=== PATIENT | female | born 1935 | race Caucasian/White ===

== ENCOUNTER 2017-05-04 07:56 | Inpatient (IN) | payer OTHER, MEDICARE ==
[~2017-05-04] VITALS: Ht 167.6 cm; Wt 68.0 kg
[~2017-05-04 07:56] MED LIST: ASPIRIN EC81 M1 PO; BYSTOLIC 5MG5 MG PO; CALCIUM + D 6001 TAB PO; CALCIUM 500 +1 EAC5 PO; CENTRUM SILVER1 EAC3 PO; DILTIAZEM 24HR180 MG PO; EXFORGE 5 MG-321 TAB PO; FLECAINIDE ACET50 MG PO; FUROSEMIDE20 MG PO; FUROSEMIDE40 MG PO; HARVONI1 TAB PO; KLOR-CON M2020 ME1 PO; LASIX20 MG PO; LASIX40 MG PO; LEVOTHYROXINE75 MCG PO; MASON NATURAL1200 MG PO; METOPROLOL SUCC50 M1 PO; NATURE'S BLEND500 M1 PO; NORVASC 5MG TAB5 MG PO; OMEGA-3 FISH O1 EAC4 PO; PERCOCET 325 MG1 TA2 PO; SENOKOT S 50 MG1 TAB PO; TOPROL XL 100100 MG PO; TRAVATAN Z5 ML OD; TYLENOL XSTR500 MG PO; VITAMIN A & D1 OIN TOP
--- NOTE | 2017-05-04 08:07 | ED DYSPNEA/ASTHMA COMPLAINT ---
History of Present Illness General Chief Complaint: Dyspnea (COPD, CHF, Other) Stated Complaint: BIBA, SOB Source: patient, family, old records, EMS Exam Limitations: no limitations Vital Signs & Intake/Output Vital Signs & Intake/Output Vital Signs Date Time Temp Pulse Resp B/P B/P Pulse O2 O2 Flow FiO2 Mean Ox Delivery Rate 05/04 1000 98.3 60 17 179/77 93 Room Air 05/04 0828 94 Room Air 05/04 0815 97.9 59 17 190/81 99 Nasal 2.0L Cannula Allergies Coded Allergies: phenytoin (RED RASH FROM HEAD TO TOE 07/07/15) prochlorperazine (TONGUE SWELLS 07/07/15) melatonin (Intermediate, NIGHTMARES, DISORIENTATION, AGITATION 07/07/15) Reconcile Medications Amlodipine Besylate 5 MG TABLET 1 TAB PO DAILY HEART (Reported) Aspirin (Ecotrin*) 81 MG TABLET.DR 1 TAB PO DAILY HEART HEALTH (Reported) Calcium Carbonate/Vitamin D3 (Calcium 500 + D Tablet) 500 MG-400 TABLET 1 TAB PO BID VITAMIN SUPPORT (Reported) Diltiazem HCl (Diltiazem 24HR ER) 180 MG CAP.ER.24H 1 CAP PO DAILY BP ( Reported) Furosemide 40 MG TABLET 1 TAB PO DAILY WATER RETENTION (Reported) Furosemide 20 MG TABLET 1 TAB PO 1200 WATER RETENTION (Reported) Levothyroxine Sodium 75 MCG TABLET 1 TAB PO DAILY AC THYROID (Reported) Metoprolol Succ XL (Toprol XL) 25 MG TAB 1 TAB PO DAILY HEART (Reported) Multivit-Min/FA/Lycopen/Lutein (Centrum Silver Tablet) 0.4 MG-300 MCG-250 MCG TABLET 1 TAB PO DAILY VITAMIN SUPPORT (Reported) [place]-3S/Dha/Epa/Fish Oil ([place]-3 Fish Oil 1,000 MG Sfgl) 300-1,000MG CAPSULE 1 CAP PO BID SUPPLEMENT (Reported) Potassium Chloride (Klor-Con M20) 20 MEQ TAB.ER.PRT 1 TAB PO DAILY SUPPLEMENT (Reported) Travoprost (Travatan Z) 0.004 % DROPS 1 GTT OD QPM GLAUCOMA (Reported) Valsartan 320 MG TABLET 1 TAB PO DAILY HEART (Reported) Triage Nurses Notes Reviewed? yes HPI: Patient presents with increasing shortness of breath and dyspnea on exertion over the past month and a half. 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 This and they cannot figure out what is going on. Patient states she has been attempting to sleep on 2 pillows without is not like her head elevated to go pack to one pillow. Patient states that sometimes she wakes up short of breath and other times she does not. Patient denies any chest pain or palpitations. Patient denies any weight gain. There are no fevers or chills. Patient denies any nausea or vomiting. Past History Travel History Traveled to [place] past 21 day No Medical History Any Pertinent Medical History? 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 No Review of Systems Review of Systems Constitutional: Reports: no symptoms. EENTM: Reports: no symptoms. Respiratory: Reports: see HPI, orthopnea (?), short of breath. Cardiovascular: Reports: no symptoms. GI: Reports: no symptoms. Genitourinary: Reports: no symptoms. Musculoskeletal: Reports: no symptoms. Skin: Reports: no symptoms. Neurological/Psychological: Reports: no symptoms. Hematologic/Endocrine: Reports: no symptoms. Immunologic/Allergic: Reports: no symptoms. All Other Systems: Reviewed and Negative Physical Exam Physical Exam General Appearance: well developed/nourished, alert, awake, anxious, mild distress Head: atraumatic, normal appearance Eyes: Bilateral: PERRL, EOMI. Ears, Nose, Throat: normal pharynx, normal ENT inspection, hearing grossly normal Neck: normal inspection, supple, full range of motion, NO JVD Respiratory: normal breath sounds, chest non-tender, no respiratory distress, lungs clear Cardiovascular: regular rate/rhythm, normal peripheral pulses Gastrointestinal: normal bowel sounds, soft, non-tender, no organomegaly Extremities: normal inspection, normal capillary refill, normal range of motion, no edema Neurologic/Psych: no motor/sensory deficits, awake, alert, oriented x 3, normal mood/affect Skin: intact, normal color, warm/dry Lymphatic: no anterior cervical viviana Core Measures ACS in differential dx? No CVA/TIA Diagnosis No Sepsis Present: No Sepsis Focused Exam Completed? No Progress Differential Diagnosis: asthma, AMI, bronchitis, CHF, COPD, pneumonia, pneumothorax, PLEURAL EFFUSION Plan of Care: Orders Procedure Date/time Status Heart Healthy Diet 05/04 D Active ED Holding Orders 05/04 1146 Active Admit to inpatient 05/04 1146 Active Vital Signs 05/04 1146 Active Code Status 05/04 1146 Active Telemetry/Outpatient Coding Specialist 05/04 0806 Active URINALYSIS 05/04 0806 Complete TROPONIN LEVEL 05/04 0806 Complete D-DIMER 05/04 0806 Complete COMPREHENSIVE METABOLIC PANEL 05/04 0806 Complete CBC WITHOUT DIFFERENTIAL 05/04 0806 Complete B-TYPE NATRIURETIC PEP (BNP) 05/04 0806 Complete EKG 05/04 0758 Active Laboratory Tests 05/04/17 0844: Urine Color YEL, Urine Clarity HAZY H, Urine pH 6.0, Ur Specific Roll 1.015, Urine Protein TRACE H, Urine Ketones NEG, Urine Nitrite NEG, Urine Bilirubin NEG, Urine Urobilinogen 0.2, Ur Leukocyte Esterase SMALL H, Ur Microscopic SEDIMENT EXAMINED, Urine RBC 1-3, Urine WBC 25-50 H, Ur Epithelial Cells MOD H , Urine Bacteria MANY H, Urine Hemoglobin NEG, Urine Glucose NEG 05/04/17 0830: Anion Gap 11, Estimated GFR 60, BUN/Creatinine Ratio 21.1, Glucose 97, Calcium 9.1, Total Bilirubin 0.9, AST 38 H, ALT 43, Alkaline Phosphatase 103, Troponin I < 0.01, [id number]-Tabuzniqxcm Pept 1800 H, Total Protein 7.2, Albumin 3.8, Globulin 3.4, Albumin/Globulin Ratio 1.1, D-Dimer High Sensitivty 1217 H, CBC w Diff NO MAN DIFF REQ, RBC 4.18 L, MCV 88.5, MCH 29.5, RDW 13.5, MPV 9.7, Gran % 74.5, Lymphocytes % 9.9 L, Monocytes % 14.6 H, Eosinophils % 0.8, Basophils % 0.2, Absolute Granulocytes 5.8, Absolute Lymphocytes 0.8 L, Absolute Monocytes 1.1 H, Absolute Eosinophils 0.1, Absolute Basophils 0, PUBS MCHC 33.4 Diagnostic Imaging: Viewed by Me: CT Scan. Discussed w/RAD: CT Scan. Radiology Impression: PATIENT: STACIE HONEYCUTT PRESENT AGE: 81 PATIENT ACCOUNT NO: [id number] : 34 LOCATION: [facility] ([place]) ORDERING PHYSICIAN: Fan Stokes MD SERVICE DATE: 05/04/17 EXAM TYPE: CAT - CTA CHEST-PULMONARY EMBOLISM EXAMINATION: CT ANGIOGRAM OF THE CHEST WITH CONTRAST (CT PULMONARY ANGIOGRAM FOR PE) CLINICAL INFORMATION: Shortness of breath and dyspnea on exertion. COMPARISON: CT angiography of chest, 10/12/2016 and 02/28/2017. TECHNIQUE: Prior to contrast administration, noncontrast localization images were obtained. Subsequently, multidetector volumetric imaging was performed from the thoracic inlet to below the diaphragms following the administration of 95 mL Optiray 350 intravenous contrast. No contrast reaction reported. Sagittal, coronal, and MIP oblique sagittal reformatted images were obtained on the CT workstation, uploaded to PACS, and reviewed. Total exam dose-length product 253 mGy-cm FINDINGS: QUALITY OF STUDY/CONTRAST BOLUS: Satisfactory. PULMONARY ARTERIES: No embolic filling defects within the main, lobar or segmental vessels. THORACIC AORTA: Atherosclerotic calcification of the thoracic aorta without evidence of aneurysm or dissection. LUNGS AND PLEURA: Moderate centrilobular emphysema and interval worsening of bronchial wall thickening in both lungs. Surgical changes from remote right upper lobectomy. Scattered endobronchial secretions in right middle and right lower lobes. Interlobular septal thickening of edema within the right lower lobe with small right pleural effusion. Compared to 02/28/2017, there are new patchy, hazy and nodular opacities in the right lower lobe suspicious for pneumonia. There are a few chronic ill-defined foci of groundglass attenuation in the left upper lobe, likely postinflammatory changes. Compared to 02/28/2017, there are some new micronodular opacities in the left lower lobe. Also, there is a new, irregular 0.9 cm nodule, likely infectious in origin (image 267, series 2). There is a new 0.3 cm noncalcified nodule in the superior segment of the left lower lobe (image 214, series 2). Interlobular septal thickening is present within the left lower lobe. Patchy opacity of atelectasis and/or consolidation in the medial left lower lobe. No left-sided pleural effusion. MEDIASTINUM: Three-vessel coronary artery atherosclerotic calcification. Mitral valve annulus is calcified. Left prepectoral cardiac pacemaker with transvenous leads extending to the right atrium and apex of the right ventricle. The left and right atrial chambers are chronically dilated and pulmonary veins are engorged.. No pericardial effusion. The esophagus is grossly unremarkable. Thyroid gland is atrophied and left thyroid lobe suboptimally visualized. LYMPHATICS: No axillary or internal mammary lymphadenopathy. Surgical clips of the right axilla. Right breast is surgically absent. Multiple small lymph nodes are seen within the mediastinum, none pathologic on the basis of size criteria. UPPER ABDOMEN: Inferior vena cava is prominent, likely due to elevated right-sided cardiac pressures, there is minimal reflux of contrast into the inferior vena cava. There appears to be a punctate, 2 mm calculus of the mid left kidney. 3 cm simple cyst at the upper pole of the left kidney. Multiple diverticula of the visualized transverse colon. OSSEOUS STRUCTURES: Old fracture of T12 inferior endplate with mild retropulsion of the posteroinferior wall fragment. Multilevel disc degeneration of the visualized lower cervical, thoracic and upper lumbar spine. No aggressive osseous lesions. IMPRESSION: 1. No pulmonary embolism. 2. Cardiomegaly and coronary artery atherosclerotic disease. Interlobular septal thickening is present within lower lobes and there is a new, small right pleural effusion. These findings likely reflect presence of mild cardiogenic edema. 3. In addition, there are some new patchy groundglass and nodular opacities in the lungs (including a new, irregular 0.9 cm nodule focus in the left lower lobe) which raise suspicion for superimposed pneumonia. 4. Moderate centrilobular emphysema. DICTATED BY: Tayo Johnson MD DATE/TIME DICTATED:05/04/171038 TELEPHONE SOLICITOR SUPERVISOR:ARCELIA DATE/TIME TRANSCRIBED:05/04/171038 CONFIDENTIAL, DO NOT COPY WITHOUT APPROPRIATE AUTHORIZATION. <Electronically signed in Other Vendor System> SIGNED BY: Tayo Johnson MD 05/04/17 1104 Initial ED EKG: A FIB WITH PACED RHYTHM Prior EKG: unchanged Rhythm Strip: atrial fibrillation Comments: AMBULATORY O2 SAT 96% PT GOT UP TO AMBULATE AGAIN AND THIS TIME THE O2 SAT DROPPED TO 88% AND SHE FEELS VERY WINDED. SHE STATES THAT THE SAME THING HAPPENED YESTERDAY AT THE [facility] AND SHE WAS GIVEN LASIX AND A BREATHING TREATMENT AND THE BREATHING TREATMENT ONLY MADE HER NAUSEAOUS. SHE IS REFUSING THE TREATMENT AT THIS TIME. Discussed with Dr. Hernandez and Dr. Krishnamurthy, they will consult on the patient. Departure Departure Disposition: STILL A PATIENT Condition: Fair Clinical Impression Primary Impression: Fluid overload Qualifiers: Hypervolemia type: unspecified Qualified Code: E87.70 - Fluid overload, unspecified Secondary Impressions: Acute respiratory failure with hypoxia, Equivalent angina Referrals: Roque Godwin MD (PCP/Family) Departure Forms: Customer Survey General Discharge Information Admission Note Spoke With: Nicole Weiner MD Documentation of Exam: Documentation of any treatments & extenuating circumstances including Concerns Regarding Discharge (functional status, medication knowledge or non-compliance, living conditions, etc.) that warrant an admission rather than observation: [IV DIURESIS, CARDIOLOGY CONSULTATION, PULM CONSULTATION, TELE MONITORING, SERIAL ENZYMES, MAY REQUIRE STRESS AND CATH] Critical Care Note Critical Care Note Critical Care Time: mins: (90 MN)
[2017-05-04] MEDS ORDERED: AMLODIPINE BESYL5 M1 PO (08:30)
[2017-05-04] MEDS ORDERED: FUROSEMIDE20 M1 PO (08:32)
[2017-05-04] MEDS ORDERED: FUROSEMIDE40 M1 PO (08:32)
[2017-05-04] MEDS ORDERED: TOPROL XL25 M1 PO (08:33)
[2017-05-04] MEDS ORDERED: VALSARTAN320 M1 PO (08:35)
[2017-05-04 08:50] LABS: ABSOLUTE BASOPHIL COUNT 0 /CUMM (0.0-0.2); ABSOLUTE EOSINOPHIL COUNT 0.1 /CUMM (0.0-0.7); ABSOLUTE GRANULOCYTE CT 5.8 /CUMM (1.4-6.5); ABSOLUTE LYMPH COUNT 0.8 /CUMM (1.2-3.4); ABSOLUTE MONOCYTE COUNT 1.1 /CUMM (0.10-0.60); BASOPHIL % 0.2 % (0.0-2.0); EOSINOPHIL % 0.8 % (0-5); GRANULOCYTE % 74.5 % (42.2-75.2); MEAN CORPUSCULAR HGB 29.5 PG (27.0-31.0); MEAN CORPUSCULAR HGB CONC 33.4 G/DL (33.0-37.0); MEAN CORPUSCULAR VOLUME 88.5 FL (81.0-99.0); MEAN PLATELET VOLUME 9.7 FL (7.4-10.4); PLATELET COUNT 278 /CUMM (130-400); RBC DISTRIBUTION WIDTH 13.5 % (11.5-14.5); RED BLOOD CELL CT 4.18 /CUMM (4.20-5.40); WHITE BLOOD CELL COUNT 7.8 /CUMM (4.8-10.8)
--- NOTE | 2017-05-04 08:53 | RADIOLOGY REPORT ---
EXAMINATION: XR PORTABLE CHEST CLINICAL INFORMATION: Shortness of breath, pulmonary edema versus pneumonia COMPARISON: 02/28/2017 TECHNIQUE: Portable frontal view of the chest was obtained. FINDINGS: Left-sided pacemaker lead tips overlie the right major and right ventricle. There is mild right basilar atelectasis with chronic pleural thickening or possibly a trace pleural effusion. No additional consolidation is seen bilaterally. No evidence of pneumothorax. There is mild prominence of the central vasculature without overt edema. The cardiac silhouette is enlarged. Calcification is present at the aortic arch. Right axillary clips are noted. No acute osseous findings are seen. IMPRESSION: Mild right basilar atelectasis with adjacent pleural thickening versus trace effusion. No additional consolidation. Mild central vascular prominence without overt edema.
--- NOTE | 2017-05-04 11:04 | CT SCAN REPORT ---
EXAMINATION: CT ANGIOGRAM OF THE CHEST WITH CONTRAST (CT PULMONARY ANGIOGRAM FOR PE) CLINICAL INFORMATION: Shortness of breath and dyspnea on exertion. COMPARISON: CT angiography of chest, 10/12/2016 and 02/28/2017. TECHNIQUE: Prior to contrast administration, noncontrast localization images were obtained. Subsequently, multidetector volumetric imaging was performed from the thoracic inlet to below the diaphragms following the administration of 95 mL Optiray 350 intravenous contrast. No contrast reaction reported. Sagittal, coronal, and MIP oblique sagittal reformatted images were obtained on the CT workstation, uploaded to PACS, and reviewed. Total exam dose-length product 253 mGy-cm FINDINGS: QUALITY OF STUDY/CONTRAST BOLUS: Satisfactory. PULMONARY ARTERIES: No embolic filling defects within the main, lobar or segmental vessels. THORACIC AORTA: Atherosclerotic calcification of the thoracic aorta without evidence of aneurysm or dissection. LUNGS AND PLEURA: Moderate centrilobular emphysema and interval worsening of bronchial wall thickening in both lungs. Surgical changes from remote right upper lobectomy. Scattered endobronchial secretions in right middle and right lower lobes. Interlobular septal thickening of edema within the right lower lobe with small right pleural effusion. Compared to 02/28/2017, there are new patchy, hazy and nodular opacities in the right lower lobe suspicious for pneumonia. There are a few chronic ill-defined foci of groundglass attenuation in the left upper lobe, likely postinflammatory changes. Compared to 02/28/2017, there are some new micronodular opacities in the left lower lobe. Also, there is a new, irregular 0.9 cm nodule, likely infectious in origin (image 267, series 2). There is a new 0.3 cm noncalcified nodule in the superior segment of the left lower lobe (image 214, series 2). Interlobular septal thickening is present within the left lower lobe. Patchy opacity of atelectasis and/or consolidation in the medial left lower lobe. No left-sided pleural effusion. MEDIASTINUM: Three-vessel coronary artery atherosclerotic calcification. Mitral valve annulus is calcified. Left prepectoral cardiac pacemaker with transvenous leads extending to the right atrium and apex of the right ventricle. The left and right atrial chambers are chronically dilated and pulmonary veins are engorged.. No pericardial effusion. The esophagus is grossly unremarkable. Thyroid gland is atrophied and left thyroid lobe suboptimally visualized. LYMPHATICS: No axillary or internal mammary lymphadenopathy. Surgical clips of the right axilla. Right breast is surgically absent. Multiple small lymph nodes are seen within the mediastinum, none pathologic on the basis of size criteria. UPPER ABDOMEN: Inferior vena cava is prominent, likely due to elevated right-sided cardiac pressures, there is minimal reflux of contrast into the inferior vena cava. There appears to be a punctate, 2 mm calculus of the mid left kidney. 3 cm simple cyst at the upper pole of the left kidney. Multiple diverticula of the visualized transverse colon. OSSEOUS STRUCTURES: Old fracture of T12 inferior endplate with mild retropulsion of the posteroinferior wall fragment. Multilevel disc degeneration of the visualized lower cervical, thoracic and upper lumbar spine. No aggressive osseous lesions. IMPRESSION: 1. No pulmonary embolism. 2. Cardiomegaly and coronary artery atherosclerotic disease. Interlobular septal thickening is present within lower lobes and there is a new, small right pleural effusion. These findings likely reflect presence of mild cardiogenic edema. 3. In addition, there are some new patchy groundglass and nodular opacities in the lungs (including a new, irregular 0.9 cm nodule focus in the left lower lobe) which raise suspicion for superimposed pneumonia. 4. Moderate centrilobular emphysema.
--- NOTE | 2017-05-04 12:42 | History & Physical ---
Phyllis INGRAM,[facility] 05/04/17 1242: General Information and HPI MD Statement: I have seen and personally examined STACIE HONEYCUTT and documented this H&P. The patient is a 81 year old F who presented with a patient stated chief complaint of [SOB]. Source of Information: patient, family, old records Exam Limitations: no limitations History of Present Illness: Ms. 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 Patient reported that over the course of one month she has been suffering from episodic shortness of breath that's not related to activity, progressed in severity and duration over the last week. She had difficult night of sleeping last night bc of shortness of breath she wasn't able to breath in the morning and decided to come to ED for evaluation. Patient reported 1 day history of nonproductive cough, denied any fever, chill, chest pain, palpitation, symptoms of upper respiratory infection ear pain, sore throat, sinus pain, headache, blurry vision. Reported decrease in appetite with 2 pounds weight loss over the last 2 weeks and decrease ambulation because of fatigability and weakness, no history of falls. Patient reported paroxysmal nocturnal dyspnea that occurred 3 times over the course of one month not associated with orthopnea, able to sleep using one pillow. off note patient didn't have any history of hypoxia either during her clinic visit with cardiology or pulmonology nor today in ED. Patient has been following with Dr. Hernandez and Dr. Jacobson over the last month for her symptoms, had an echocardiogram last month that didn't show any changes from echo 2014 ejection fraction 55% with no diastolic dysfunction, was prescribed inhalars by Dr. Hernandez with no improvement. Patient [facility] last [facility] and yesterday, reported improvement of lower extremity edema but no improvement in shortness of breath. Allergies/Medications Allergies: Coded Allergies: phenytoin (RED RASH FROM HEAD TO TOE 07/07/15) prochlorperazine (TONGUE SWELLS 07/07/15) melatonin (Intermediate, NIGHTMARES, DISORIENTATION, AGITATION 07/07/15) Home Med list Amlodipine Besylate 5 MG TABLET 1 TAB PO DAILY HEART (Reported) Aspirin (Ecotrin*) 81 MG TABLET.DR 1 TAB PO DAILY HEART HEALTH (Reported) Calcium Carbonate/Vitamin D3 (Calcium 500 + D Tablet) 500 MG-400 TABLET 1 TAB PO BID VITAMIN SUPPORT (Reported) Diltiazem HCl (Diltiazem 24HR ER) 180 MG CAP.ER.24H 1 CAP PO DAILY BP ( Reported) Furosemide 40 MG TABLET 1 TAB PO DAILY WATER RETENTION (Reported) Furosemide 20 MG TABLET 1 TAB PO 1200 WATER RETENTION (Reported) Levothyroxine Sodium 75 MCG TABLET 1 TAB PO DAILY AC THYROID (Reported) Metoprolol Succ XL (Toprol XL) 25 MG TAB 1 TAB PO DAILY HEART (Reported) Multivit-Min/FA/Lycopen/Lutein (Centrum Silver Tablet) 0.4 MG-300 MCG-250 MCG TABLET 1 TAB PO DAILY VITAMIN SUPPORT (Reported) [place]-3S/Dha/Epa/Fish Oil ([place]-3 Fish Oil 1,000 MG Sfgl) 300-1,000MG CAPSULE 1 CAP PO BID SUPPLEMENT (Reported) Potassium Chloride (Klor-Con M20) 20 MEQ TAB.ER.PRT 1 TAB PO DAILY SUPPLEMENT (Reported) Travoprost (Travatan Z) 0.004 % DROPS 1 GTT OD QPM GLAUCOMA (Reported) Valsartan 320 MG TABLET 1 TAB PO DAILY HEART (Reported) Past History Travel History Traveled to [place] past 21 day No Medical History Neurological: hemorrhagic CVA EENT: glaucoma (right eye) Cardiovascular: AFIB, aortic stenosis (mild), hypertension, complete heart block s/p PM Respiratory: bronchitis (mild), COPD, R UPPER LOBECTOMY Gastrointestinal: NONE Hepatic: hepatitis C Renal: NONE Musculoskeletal: osteoarthritis Psychiatric: anxiety Endocrine: hypothyroidism Blood Disorders: anemia Cancer(s): breast cancer (s/p right mastectomy), lung cancer (s/p RUL lobectomy) 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 self Services at Home: Nursing Primary Language: Ukrainian ETOH Use: denies use Illicit Drug Use: denies illicit drug use Living Will? yes Functional Ability ADLs Independent: dressing, eating, toileting, bathing. Ambulation: independent IADLs Independent: telephone. Needs Assist: shopping, housework, finances, food prep, transportation, medication admin. Review of Systems Review of Systems Constitutional: Reports: see HPI. Denies: chills, fever. EENTM: Denies: blurred vision, visual changes, eye pain, nasal congestion. Cardiovascular: Denies: chest pain, palpitations. Respiratory: Reports: cough, short of breath. GI: Denies: abdominal pain, constipation, diarrhea, bowel incontinence, nausea, bloody stool, changes in stool, vomiting. Genitourinary: Denies: dysuria, frequency, hematuria. Musculoskeletal: Denies: back pain, joint pain, muscle pain. Skin: Denies: rash. Neurological/Psychological: Denies: headache, numbness. Exam & Diagnostic Data Last 24 Hrs of Vital Signs/I&O Vital Signs Date Time Temp Pulse Resp B/P B/P Pulse O2 O2 Flow FiO2 Mean Ox Delivery Rate 05/04 1505 Nasal 2.0L Cannula 05/04 1255 98.2 59 18 159/72 98 Nasal 2.0L Cannula 05/04 1000 98.3 60 17 179/77 93 Room Air 05/04 0828 94 Room Air 05/04 0815 97.9 59 17 190/81 99 Nasal 2.0L Cannula Intake & Output 05/04 1600 05/04 0800 05/04 0000 Intake Total Output Total Balance Patient 68.039 kg Weight Weight Reported by Patient Measurement Method Physical Exam General Appearance Alert, Oriented X3, Cooperative, No Acute Distress Skin No Rashes, No Breakdown, No Significant Lesion Skin Temp/Moisture Exam: Warm/Dry HEENT Atraumatic, PERRLA, EOMI, Mucous Membr. moist/pink Neck Supple, No JVD, No thryomegaly Lymphatic no cervical or axillary lymphadenopathy Cardiovascular Regular Rate, Normal S1, Normal S2, No Murmurs Lungs Normal Air Movement, mild diffuse ronchi Abdomen Normal Bowel Sounds, Soft, No Tenderness Neurological Normal Gait, Normal Speech, Normal Tone, Sensation Intact, Cranial Nerves 3-12 NL, Reflexes 2+, right side 4/5 UE and LE Extremities No Clubbing, No Cyanosis, No Edema, Normal Pulses, No Tenderness/ Swelling Vascular Normal Pulses, Pulses Symmetrical Last 24 Hrs of Labs/Dwayne: Laboratory Tests 05/04/17 0844: Urine Color YEL, Urine Clarity HAZY H, Urine pH 6.0, Ur Specific [place] 1.015, Urine Protein TRACE H, Urine Ketones NEG, Urine Nitrite NEG, Urine Bilirubin NEG, Urine Urobilinogen 0.2, Ur Leukocyte Esterase SMALL H, Ur Microscopic SEDIMENT EXAMINED, Urine RBC 1-3, Urine WBC 25-50 H, Ur Epithelial Cells MOD H , Urine Bacteria MANY H, Urine Hemoglobin NEG, Urine Glucose NEG 05/04/17 0830: Anion Gap 11, Estimated GFR 60, BUN/Creatinine Ratio 21.1, Glucose 97, Calcium 9.1, Total Bilirubin 0.9, AST 38 H, ALT 43, Alkaline Phosphatase 103, Troponin I < 0.01, Gcd-K-Rmkpopaummg Pept 1800 H, Total Protein 7.2, Albumin 3.8, Globulin 3.4, Albumin/Globulin Ratio 1.1, D-Dimer High Sensitivty 1217 H, CBC w Diff NO MAN DIFF REQ, RBC 4.18 L, MCV 88.5, MCH 29.5, RDW 13.5, MPV 9.7, Gran % 74.5, Lymphocytes % 9.9 L, Monocytes % 14.6 H, Eosinophils % 0.8, Basophils % 0.2, Absolute Granulocytes 5.8, Absolute Lymphocytes 0.8 L, Absolute Monocytes 1.1 H, Absolute Eosinophils 0.1, Absolute Basophils 0, PUBS MCHC 33.4 Assessment/Plan Assessment: Ms. 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 On admission vital signs temperature 97.9, pulse 59 regular, blood pressure 190/ 80, oxygen saturation 94% on room air and 99% on 2 L Labs pertinent to WBC 7.8, H&H 12.4/37, platelet 278, d-dimer 1217, proBNP 1800, electrolytes within normal, bicarbonate 27 Chest x-ray IMPRESSION: Mild right basilar atelectasis with adjacent pleural thickening versus trace effusion. No additional consolidation. Mild central vascular prominence without overt edema. CTA IMPRESSION: 1. No pulmonary embolism. 2. Cardiomegaly and coronary artery atherosclerotic disease. Interlobular septal thickening is present within lower lobes and there is a new, small right pleural effusion. These findings likely reflect presence of mild cardiogenic edema. 3. In addition, there are some new patchy groundglass and nodular opacities in the lungs (including a new, irregular 0.9 cm nodule focus in the left lower lobe) which raise suspicion for superimposed pneumonia. 4. Moderate centrilobular emphysema. Problem list #Shortness of breath with cardiogenic versus pulmonary etiology Patient reported progressive shortness of breath that's not improving with Lasix nor inhalers. Patient had mildly elevated proBNP 1800 with history of lower extremity edema that improved with IV Lasix. Initially on exam there was only diffuse mild rhonchi and later patient was examined and had significant bilateral diffuse wheeze which represent bronchospasm/pulmonology etiology. CTA showed groundglass opacity that could represent pneumonia. Patient was treated in ED with Lasix. -Will continue Lasix 40 IV twice a day -Start Solu-Medrol 40 mg every 8 -Cover for CAP with ceftriaxone and azithromycin, blood culture, urine antigen for Legionella and Streptococcus pneumonia -Will obtain pulmonology consultation and cardiology consultation as well. Patient had recent echocardiogram in the office, will obtain records. -CTA reveals new small right pleural effusion, will follow with chest x-ray and couple of days after Lasix treatment for any signs of improvement -We will obtain pulse ox on ambulation and nocturnal pulse ox TRC and nebs #Paroxysmal atrial fibrillation not on anticoagulation, hypertension, hyperlipidemia, complete heart block status post pacemaker Continue home medication except for metoprolol XL 25 daily, body masker Dr. 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 alejandre last visit was early last year 2016. No history of recurrence, no nodular lesion on current CTA. DVT prophylaxis heparin subcutaneous, ALPS Diet heart healthy Code DNR/DNI As Ranked By This Provider Problem List: 1. SOB (shortness of breath) 2. Complete heart block 3. HTN (hypertension) 4. Hypothyroid 5. Congestive heart failure 6. Atrial fibrillation Core Measures/Misc (01/16) Acute Coronary Syndrome ACS Diagnosis: No Congestive Heart Failure Congestive Heart Failure Diagnosis No Cerebrovascular Accident CVA/TIA Diagnosis: No VTE (View Protocol) VTE Risk Factors Age>40 No Mechanical VTE Prophylaxis d/t N/A MechProphylax Ordered No VTE Pharm Prophylaxis d/t NA PharmProphylax ordered Sepsis (View protocol) Sepsis Present: No Shanna Rose MD 05/04/17 1530: Attending MD Review Statement Attending Statement Attending MD Statement: examined this patient, discuss w/resident/PA/SANDSTONE SPLITTER, agreed w/resident/PA/SANDSTONE SPLITTER, reviewed EMR data (avail), discussed with nursing, discussed with case mgmt, amended to note Attending Assessment/Plan: 81-year-old female with history of atrial fibrillation, complete heart block status post permanent pacemaker placement in June 2014, hypertension, hypothyroidism, hemorrhagic stroke with right-sided residual weakness, hepatitis C status post therapy with Harvoni, breast cancer status post mastectomy, lung cancer status post right upper lobe lobectomy. Presents with complaint of shortness of breath. Patient reports that symptoms have been going on for the past month or within the past 4 days symptoms have become excessively worse. She has been seen by the cardiology and pulmonology service as an outpatient. She has had an echocardiogram done recently and was started on bronchodilators with no improvement of her symptoms. She was not on any bronchodilator therapy prior to this. She presents today due to worsening of shortness of breath. She denies chest pain. She denies palpitations. She reports shortness of breath at rest and with minimal exertion. She does admit to leg swelling on occasion. On examination she does not appear to be in acute distress. She is saturating 99% on 2 L of oxygen. Pupils are equal and reactive. Heart sounds are regular. She has failed to bilaterally with diffuse wheezing. Abdomen soft and nontender. She has no peripheral edema. She has no skin rash. She has no leukocytosis on her labs. She is afebrile. CT angiogram shows no pulmonary embolism. It reveals new small right pleural effusion and findings suggestive of cardiogenic edema. She also has new patchy groundglass and nodular opacities in the lung which raises concern for superimposed pneumonia. She has moderate centrilobular emphysema. Recommendations: -Patient's symptoms may be secondary to exacerbation of her underlying COPD. She was previously not on any medical therapy. Begin patient on bronchodilator therapy and systemic steroid therapy. -Titrate off oxygen if saturation is greater than 90% at rest and with ambulation. -Begin patient empirically on antibiotic therapy for community acquired pneumonia given the new patchy groundglass opacities noted on her CT scan. In view of her history of malignancy she will need follow-up imaging after completion of therapy to ensure resolution of these findings. -In view of the congestion noted on imaging recommend diuresis with Lasix 40 mg twice daily intravenously. Monitor daily weights and input output. -Chemical DVT prophylaxis.
--- NOTE | 2017-05-04 15:12 | Cons- Pulmonary ---
General Information and HPI Consulting Request Date of Consult: 05/04/17 Requested By: Dr. Rose Reason for Consult: dyspnea Source of Information: patient Exam Limitations: no limitations History of Present Illness: 81 year old woman. Known to me from the office. S/p Right upper lobectomy, lymph node dissection. History of transthoracic biopsy of her RUL mass and the findings were consistent with non-small carcinoma. She has been experiencing HARDY for the past few weeks. She has seen Dr. Weiner and had a CXR consistent with post operative changes. She has had some deconditioning. No chest pain, no fever, no cough. No sick contacts or travel history. PFTs were consistent with mild obstructive lung disease and a mild reduction in the DLCO. She does have atrial fibrillation without anticoagulation due to a history of a remote stroke. She is followed by Dr. Weiner for her cardiology needs. She has been rate controlled. CTA without PE. LLL GGO. No wbc, clear phlegm. Wheezing on exam. Allergies/Medications Allergies: Coded Allergies: phenytoin (RED RASH FROM HEAD TO TOE 07/07/15) prochlorperazine (TONGUE SWELLS 07/07/15) melatonin (Intermediate, NIGHTMARES, DISORIENTATION, AGITATION 07/07/15) Home Med List: Amlodipine Besylate 5 MG TABLET 1 TAB PO DAILY HEART (Reported) Aspirin (Ecotrin*) 81 MG TABLET.DR 1 TAB PO DAILY HEART HEALTH (Reported) Calcium Carbonate/Vitamin D3 (Calcium 500 + D Tablet) 500 MG-400 TABLET 1 TAB PO BID VITAMIN SUPPORT (Reported) Diltiazem HCl (Diltiazem 24HR ER) 180 MG CAP.ER.24H 1 CAP PO DAILY BP ( Reported) Furosemide 40 MG TABLET 1 TAB PO DAILY WATER RETENTION (Reported) Furosemide 20 MG TABLET 1 TAB PO 1200 WATER RETENTION (Reported) Levothyroxine Sodium 75 MCG TABLET 1 TAB PO DAILY AC THYROID (Reported) Metoprolol Succ XL (Toprol XL) 25 MG TAB 1 TAB PO DAILY HEART (Reported) Multivit-Min/FA/Lycopen/Lutein (Centrum Silver Tablet) 0.4 MG-300 MCG-250 MCG TABLET 1 TAB PO DAILY VITAMIN SUPPORT (Reported) [place]-3S/Dha/Epa/Fish Oil ([place]-3 Fish Oil 1,000 MG Sfgl) 300-1,000MG CAPSULE 1 CAP PO BID SUPPLEMENT (Reported) Potassium Chloride (Klor-Con M20) 20 MEQ TAB.ER.PRT 1 TAB PO DAILY SUPPLEMENT (Reported) Travoprost (Travatan Z) 0.004 % DROPS 1 GTT OD QPM GLAUCOMA (Reported) Valsartan 320 MG TABLET 1 TAB PO DAILY HEART (Reported) Current Medications: Current Medications Sig/Elena Start time Last Medication Dose Route Stop Time Status Admin Acetaminophen 650 MG Q6P PRN 05/04 1330 AC PO Furosemide 40 MG ONCE ONE 05/04 1145 DC 05/04 IV 05/04 1146 1149 Furosemide 0 .STK-MED ONE 05/04 1144 DC IV Heparin Sodium 5,000 UNIT Q8 05/04 1400 AC (Porcine) SC Review of Systems Comments 18 pt ros reviewed pertinent positives and negatives in chart, otherwise negative Past History Travel History Traveled to [place] past 21 day No Medical History Neurological: hemorrhagic CVA EENT: glaucoma (right eye) Cardiovascular: AFIB, aortic stenosis (mild), hypertension, complete heart block s/p PM Respiratory: bronchitis (mild), COPD, R UPPER LOBECTOMY Gastrointestinal: NONE Hepatic: hepatitis C Renal: NONE Musculoskeletal: osteoarthritis Psychiatric: anxiety Endocrine: hypothyroidism Blood Disorders: anemia Cancer(s): breast cancer (s/p right mastectomy), lung cancer (s/p RUL lobectomy) 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 self Services at Home: Nursing Primary Language: Albanian ETOH Use: denies use Illicit Drug Use: denies illicit drug use Living Will? yes Functional Ability ADLs Independent: dressing, eating, toileting, bathing. Ambulation: independent IADLs Independent: telephone. Needs Assist: shopping, housework, finances, food prep, transportation, medication admin. Exam & Diagnostic Data Last 24 Hrs of Vital Signs/I&O Vital Signs Date Time Temp Pulse Resp B/P B/P Pulse O2 O2 Flow FiO2 Mean Ox Delivery Rate 05/05 0656 98.7 59 20 150/80 98 Nasal 2.0L Cannula 05/05 0000 Nasal 2.0L Cannula 05/04 2215 98.1 59 20 134/72 98 05/04 1757 150/70 05/04 1756 150/70 05/04 1710 94 Nasal 2.0L Cannula 05/04 1655 99.2 66 18 150/70 05/04 1505 Nasal 2.0L Cannula 05/04 1255 98.2 59 18 159/72 98 Nasal 2.0L Cannula Intake & Output 05/05 1600 05/05 0800 05/05 0000 Intake Total 100 200 Output Total 333 188 1258 Balance -300 -150 -800 Intake, Oral 100 200 Output, Urine 108 826 [id number] Physical Exam Other Physical Findings: gen awake and alert heent ncat cvs s1, s2 lungs bilateral wheezing abd soft bs+ ext without edema Last 48 Hrs of Labs/Dwayne: Laboratory Tests 05/05/17 0620: Anion Gap 11, Estimated GFR 60, BUN/Creatinine Ratio 18.9, CBC w Diff NO MAN DIFF REQ, RBC 3.97 L, MCV 89.3, MCH 29.8, RDW 13.8, MPV 10.1, Gran % 90.6 H, Lymphocytes % 8.5 L, Monocytes % 0.9 L, Eosinophils % 0, Basophils % 0, Absolute Granulocytes 5.1, Absolute Lymphocytes 0.5 L, Absolute Monocytes 0.1, Absolute Eosinophils 0, Absolute Basophils 0, PUBS MCHC 33.3 05/04/17 0844: Urine Color YEL, Urine Clarity HAZY H, Urine pH 6.0, Ur Specific [place] 1.015, Urine Protein TRACE H, Urine Ketones NEG, Urine Nitrite NEG, Urine Bilirubin NEG, Urine Urobilinogen 0.2, Ur Leukocyte Esterase SMALL H, Ur Microscopic SEDIMENT EXAMINED, Urine RBC 1-3, Urine WBC 25-50 H, Ur Epithelial Cells MOD H , Urine Bacteria MANY H, Urine Hemoglobin NEG, Urine Glucose NEG 05/04/17 0830: Anion Gap 11, Estimated GFR 60, BUN/Creatinine Ratio 21.1, Glucose 97, Calcium 9.1, Total Bilirubin 0.9, AST 38 H, ALT 43, Alkaline Phosphatase 103, Troponin I < 0.01, Aoy-Q-Qaagnijrqgh Pept 1800 H, Total Protein 7.2, Albumin 3.8, Globulin 3.4, Albumin/Globulin Ratio 1.1, D-Dimer High Sensitivty 1217 H, CBC w Diff NO MAN DIFF REQ, RBC 4.18 L, MCV 88.5, MCH 29.5, RDW 13.5, MPV 9.7, Gran % 74.5, Lymphocytes % 9.9 L, Monocytes % 14.6 H, Eosinophils % 0.8, Basophils % 0.2, Absolute Granulocytes 5.8, Absolute Lymphocytes 0.8 L, Absolute Monocytes 1.1 H, Absolute Eosinophils 0.1, Absolute Basophils 0, PUBS MCHC 33.4 Microbiology 05/04 1948 URINE ROUT: Legionella Antigen - COMP 05/04 1948 URINE ROUT: Streptococcus pneumoniae Antigen (M - COMP Assessment/Plan Impression/Plan: Impression 81 year old woman. Known to me from the office. S/p Right upper lobectomy, lymph node dissection. History of transthoracic biopsy of her RUL mass and the findings were consistent with non-small carcinoma. She has been experiencing HARDY for the past few weeks. She has seen Dr. Weiner and had a CXR consistent with post operative changes. She has had some deconditioning. No chest pain, no fever, no cough. No sick contacts or travel history. PFTs were consistent with mild obstructive lung disease and a mild reduction in the DLCO. She does have atrial fibrillation without anticoagulation due to a history of a remote stroke. She is followed by Dr. Weiner for her cardiology needs. She has been rate controlled. CTA without PE. LLL GGO. No wbc, clear phlegm. Wheezing on exam. Plan -cardiology appreciated -ins/outs, diuresis -solumedrol 40mg iv q8h -trc/nebs -zithromax course -possible deconditioning, consideration for rehab -possibly new respiratory baseline DVT prophylaxis at all times Consult Acknowledgment - Thank you for your consult request.
--- NOTE | 2017-05-04 16:31 | Cons- Cardiology ---
General Information and HPI Consulting Request Date of Consult: 05/04/17 Requested By: Nicole Weiner MD Reason for Consult: Dyspnea Source of Information: patient, old records Exam Limitations: no limitations History of Present Illness: The patient is an 81-year-old woman with a past medical history of complete heart block (status post Medtronic pacemaker implantation), atrial fibrillation, hypertension, hypothyroidism and a prior hemorrhagic stroke, as well as breast CA and lung CVA, status post right upper lobectomy. She presents to our emergency room with symptoms of increasing dyspnea which have been progressive over a period of approximately one month; however, acutely worsening over the past several days. The patient has been evaluated by her primary hot header operator as well as docketing specialist recently. An echocardiogram performed recently demonstrated overall preserved function. Attempts at diuresis as well as attempts at nebulizer therapy as an outpatient yielded no improvement in her underlying respiratory difficulty. On arrival, the patient underwent a CT scan which demonstrated no evidence of pulmonary embolism; however, possible mild congestive heart failure as well as possible superimposed pneumonia and moderate emphysema. From a cardiac standpoint, the patient otherwise denies symptoms of chest pains nor palpitations at rest or with activity she is however extremely limited due to dyspnea Allergies/Medications Allergies: Coded Allergies: phenytoin (RED RASH FROM HEAD TO TOE 07/07/15) prochlorperazine (TONGUE SWELLS 07/07/15) melatonin (Intermediate, NIGHTMARES, DISORIENTATION, AGITATION 07/07/15) Home Med List: Amlodipine Besylate 5 MG TABLET 1 TAB PO DAILY HEART (Reported) Aspirin (Ecotrin*) 81 MG TABLET.DR 1 TAB PO DAILY HEART HEALTH (Reported) Calcium Carbonate/Vitamin D3 (Calcium 500 + D Tablet) 500 MG-400 TABLET 1 TAB PO BID VITAMIN SUPPORT (Reported) Diltiazem HCl (Diltiazem 24HR ER) 180 MG CAP.ER.24H 1 CAP PO DAILY BP ( Reported) Furosemide 40 MG TABLET 1 TAB PO DAILY WATER RETENTION (Reported) Furosemide 20 MG TABLET 1 TAB PO 1200 WATER RETENTION (Reported) Levothyroxine Sodium 75 MCG TABLET 1 TAB PO DAILY AC THYROID (Reported) Metoprolol Succ XL (Toprol XL) 25 MG TAB 1 TAB PO DAILY HEART (Reported) Multivit-Min/FA/Lycopen/Lutein (Centrum Silver Tablet) 0.4 MG-300 MCG-250 MCG TABLET 1 TAB PO DAILY VITAMIN SUPPORT (Reported) [place]-3S/Dha/Epa/Fish Oil ([place]-3 Fish Oil 1,000 MG Sfgl) 300-1,000MG CAPSULE 1 CAP PO BID SUPPLEMENT (Reported) Potassium Chloride (Klor-Con M20) 20 MEQ TAB.ER.PRT 1 TAB PO DAILY SUPPLEMENT (Reported) Travoprost (Travatan Z) 0.004 % DROPS 1 GTT OD QPM GLAUCOMA (Reported) Valsartan 320 MG TABLET 1 TAB PO DAILY HEART (Reported) Current Medications: Current Medications Sig/Elena Start time Last Medication Dose Route Stop Time Status Admin Acetaminophen 650 MG Q6P PRN 05/04 1330 AC PO Amlodipine Besylate 5 MG DAILY 05/04 1454 AC PO Aspirin Buffered 81 MG DAILY 05/04 1454 AC PO Azithromycin 500 MG DAILY 05/04 1526 AC Sodium Chloride 250 ML IV Ceftriaxone Sodium 1,000 MG DAILY 05/04 1526 AC IV Diltiazem HCl 180 MG DAILY 05/04 1454 AC PO Furosemide 40 MG 7:30 AM, & 4:30 PM 05/04 1630 AC IV Furosemide 40 MG ONCE ONE 05/04 1145 DC 05/04 IV 05/04 1146 1149 Furosemide 0 .STK-MED ONE 05/04 1144 DC IV Heparin Sodium 5,000 UNIT Q8 05/04 1400 AC (Porcine) SC Latanoprost 1 GTT AT BEDTIME 05/04 2200 AC OPH Levothyroxine Sodium 0.075 MG DAILY AC 05/04 1455 AC PO Losartan Potassium 100 MG DAILY 05/04 1507 AC PO Methylprednisolone 40 MG Q8 05/04 1525 AC IV Metoprolol Succinate 25 MG DAILY 05/04 1456 DC PO Review of Systems Review of Systems: The review of systems is negative for chest pains, palpitations nor lightheadedness. The remainder of the 14 point review of systems is noncontributory with the exception of above. Past History Travel History Traveled to [place] past 21 day No Medical History Blood Transfusion Hx: Yes Type of Reaction: CONTRACTED "HEP C" Neurological: hemorrhagic CVA EENT: glaucoma (right eye) Cardiovascular: AFIB, aortic stenosis (mild), hypertension, complete heart block s/p PM Respiratory: bronchitis (mild), COPD, R UPPER LOBECTOMY Gastrointestinal: NONE Hepatic: hepatitis C, TREATED WITH HARVONI Renal: NONE Musculoskeletal: osteoarthritis Psychiatric: anxiety Endocrine: hypothyroidism Blood Disorders: anemia Cancer(s): breast cancer (s/p right mastectomy), lung cancer (s/p RUL lobectomy) FLOAT REMOVER/Reproductive: NONE Surgical History Surgical History: masectomy, right upper lobectomy R MASTECTOMY Family History Relations & Conditions If Any: MOTHER FHx: uterine cancer Psychosocial History Where Do You Live? Assisted Living Who Do You Live With? self Services at Home: Nursing Primary Language: Bengali Smoking Status: Former Smoker ETOH Use: denies use Illicit Drug Use: denies illicit drug use Living Will? yes Functional Ability ADLs Independent: dressing, eating, toileting, bathing. Ambulation: independent IADLs Independent: telephone. Needs Assist: shopping, housework, finances, food prep, transportation, medication admin. Exam & Diagnostic Data Vital Signs and I&O Vital Signs Date Time Temp Pulse Resp B/P B/P Pulse O2 O2 Flow FiO2 Mean Ox Delivery Rate 05/04 1505 Nasal 2.0L Cannula 05/04 1255 98.2 59 18 159/72 98 Nasal 2.0L Cannula 05/04 1000 98.3 60 17 179/77 93 Room Air 05/04 0828 94 Room Air 05/04 0815 97.9 59 17 190/81 99 Nasal 2.0L Cannula Intake & Output 05/04 1600 05/04 0800 05/04 0000 05/03 1600 05/03 0800 05/03 0000 Intake Total Output Total Balance Patient 150 lb Weight Weight Reported by Patient Measurement Method Physical Exam: General: Nontoxic, no apparent distress. HEENT: Sclera and conjunctiva within normal limits, without xanthelasmas. Neck: Carotids 2+ without bruits. Respiratory: Diffuse wheezing, air movement is decreased, without accessory respiratory muscle use. Heart: Irregularly irregular rate and rhythm, 2-6 systolic ejection murmur at left sternal border, without JVD. Abdomen: Soft, nontender, no masses, normoactive bowel sounds. Extremities: Without clubbing, cyanosis, without edema. Neuro: Nonfocal exam, strength, 5 out of 5 Skin: Within normal limits without lesions. Psych: Mood and affect: Normal Labs/Dwayne Results: Laboratory Tests 05/04 05/04 0844 0830 Chemistry Sodium (137 - 145 mmol/L) 141 Potassium (3.5 - 5.1 mmol/L) 3.8 Chloride (98 - 107 mmol/L) 103 Carbon Dioxide (22 - 30 mmol/L) 27 Anion Gap (5 - 16) 11 BUN (7 - 17 mg/dL) 19 H Creatinine (0.5 - 1.0 mg/dL) 0.9 Estimated GFR (>60 ml/min) 60 BUN/Creatinine Ratio (7 - 25 %) 21.1 Glucose (65 - 99 mg/dL) 97 Calcium (8.4 - 10.2 mg/dL) 9.1 Total Bilirubin (0.2 - 1.3 mg/dL) 0.9 AST (14 - 36 U/L) 38 H ALT (9 - 52 U/L) 43 Alkaline Phosphatase (<127 U/L) 103 Troponin I (< 0.11 ng/ml) < 0.01 [id number] Pept (<125 pg/mL) 1800 H Total Protein (6.3 - 8.2 g/dL) 7.2 Albumin (3.5 - 5.0 g/dL) 3.8 Globulin (1.9 - 4.2 gm/dL) 3.4 Albumin/Globulin Ratio (1.1 - 2.2 %) 1.1 Coagulation D-Dimer High Sensitivty (0 - 243 ng/ml) 1217 H Hematology CBC w Diff NO MAN DIFF REQ WBC (4.8 - 10.8 /CUMM) 7.8 RBC (4.20 - 5.40 /CUMM) 4.18 L Hgb (12.0 - 16.0 G/DL) 12.4 Hct (37 - 47 %) 37.0 MCV (81.0 - 99.0 FL) 88.5 MCH (27.0 - 31.0 PG) 29.5 RDW (11.5 - 14.5 %) 13.5 Plt Count (130 - 400 /CUMM) 278 MPV (7.4 - 10.4 FL) 9.7 Gran % (42.2 - 75.2 %) 74.5 Lymphocytes % (20.5 - 51.1 %) 9.9 L Monocytes % (1.7 - 9.3 %) 14.6 H Eosinophils % (0 - 5 %) 0.8 Basophils % (0.0 - 2.0 %) 0.2 Absolute Granulocytes (1.4 - 6.5 /CUMM) 5.8 Absolute Lymphocytes (1.2 - 3.4 /CUMM) 0.8 L Absolute Monocytes (0.10 - 0.60 /CUMM) 1.1 H Absolute Eosinophils (0.0 - 0.7 /CUMM) 0.1 Absolute Basophils (0.0 - 0.2 /CUMM) 0 PUBS MCHC (33.0 - 37.0 G/DL) 33.4 Urines Urine Color (YEL,AMB,STR) YEL Urine Clarity (CLEAR) HAZY H Urine pH (5.0 - 8.0) 6.0 Ur Specific [place] (1.001 - 1.035) 1.015 Urine Protein (NEG,<30 MG/DL) TRACE H Urine Ketones (NEG) NEG Urine Nitrite (NEG) NEG Urine Bilirubin (NEG) NEG Urine Urobilinogen (0.1 - 1.0 EU/dl) 0.2 Ur Leukocyte Esterase (NEG) SMALL H Ur Microscopic SEDIMENT EXAMINED Urine RBC (0 - 5 /HPF) 1-3 Urine WBC (0 - 2 /HPF) 25-50 H Ur Epithelial Cells (NONE,FEW) MOD H Urine Bacteria (NEG/NONE) MANY H Urine Hemoglobin (NEG) NEG Urine Glucose (N MG/DL) NEG Assessment/Plan Assessment/Plan 81-year-old woman with a past medical history of complete heart block (status post Medtronic pacemaker implantation), atrial fibrillation, hypertension, hypothyroidism and a prior hemorrhagic stroke, as well as breast CA and lung CVA , status post right upper lobectomy. She presents to our emergency room with symptoms of increasing dyspnea which have been progressive over a period of approximately one month; however, acutely worsening over the past several days. Dyspnea: Likely multifactorial. The patient is noted to have emphysema as well as possible pneumonia and congestive heart failure by CT. She has an elevated BNP, and given this I would attempt diuresis, targeting and that output of approximately 1-2 L, and assess for symptomatic improvement. Concurrently, she will be treated by pulmonary for COPD and possible underlying pneumonia. Atrial fibrillation: The patient has atrial fibrillation and is not anticoagulated secondary to a prior hemorrhagic stroke. We will continue with current regimen. Pacemaker: The patient has an indwelling Medtronic pacemaker with normal function by outpatient testing. No further tx / interrogation of the same is needed. Thank you for allowing us to participate in the care of your patient. Please do not hesitate to contact us further with any questions. Sincerely, Porter Jaramillo MD [facility] Consult Acknowledgment - Thank you for your consult request.
[2017-05-04 16:55] VITALS: BP 150/70
[2017-05-04 22:15] VITALS: BP 134/72
[2017-05-05 06:56] VITALS: BP 150/80
--- NOTE | 2017-05-05 08:05 | PN- Housestaff ---
Phyllis INGRAM,[facility] 05/05/17 0805: Subjective Follow-up For: COPD exacerbation CHF excerbation CAP Subjective: Patient was seen and examined this morning, she had a good night of sleep. She doesn't feel much difference in her respirtaory status however was able to sleep the whole night last night without waking up because of SOB. Ins and outs over the last 24 hour 800 mL, target is 1-2 L Patient is afebrile with MAXIMUM TEMPERATURE 99.2, blood pressure control, continue to be 2 L oxygen saturating 98%, on ambulation in ED patient desat to 88% on room air. Will obtain pulse ox and podiatry today and will plan for nocturnal pulse ox. Review of Systems Constitutional: Reports: see HPI. Objective Last 24 Hrs of Vital Signs/I&O Vital Signs Date Time Temp Pulse Resp B/P B/P Pulse O2 O2 Flow FiO2 Mean Ox Delivery Rate 05/05 0656 98.7 59 20 150/80 98 Nasal 2.0L Cannula 05/05 0000 Nasal 2.0L Cannula 05/04 2215 98.1 59 20 134/72 98 05/04 1757 150/70 05/04 1756 150/70 05/04 1710 94 Nasal 2.0L Cannula 05/04 1655 99.2 66 18 150/70 05/04 1505 Nasal 2.0L Cannula 05/04 1255 98.2 59 18 159/72 98 Nasal 2.0L Cannula 05/04 1000 98.3 60 17 179/77 93 Room Air Intake & Output 05/05 1600 05/05 0800 05/05 0000 Intake Total 100 200 Output Total 437 022 4953 Balance -300 -150 -800 Intake, Oral 100 200 Output, Urine 207 739 3446 Physical Exam General Appearance: Alert, Oriented X3, Cooperative, No Acute Distress Skin: No Rashes Skin Temp/Moisture Exam: Warm/Dry HEENT: Atraumatic, PERRLA, EOMI, Mucous Membr. moist/pink Neck: Supple Cardiovascular: Regular Rate, Normal S1, Normal S2, No Murmurs Lungs: Clear to Auscultation, Normal Air Movement Abdomen: Normal Bowel Sounds, Soft, No Tenderness Neurological: Normal Speech, Strength at 5/5 X4 Ext, Normal Tone, Sensation Intact, Cranial Nerves 3-12 NL, Reflexes 2+ Extremities: No Clubbing, No Cyanosis, No Edema, Normal Pulses Assessment/Plan Assessment: Ms. Sainz is 81-year-old lady with past medical history significant for proxismal atrial fibrillation (not on anticoagulation due to history of hemorrhagic stroke), complete heart block s/p pacemaker, HTN, hypothyroidism, hemorrhagic CVA 1999 with residual right-sided weakness, hepatitis C s/p 2014 , right eye glaucoma, anxiety, osteoarthritis, breast cancer s/p right mastectomy 1975, lung non-small cell s/p right upper lobe lobectomy 2014 BIBA from assisting [facility] with chief complaint of shortness of breath. Chest x-ray IMPRESSION: Mild right basilar atelectasis with adjacent pleural thickening versus trace effusion. No additional consolidation. Mild central vascular prominence without overt edema. CTA IMPRESSION: 1. No pulmonary embolism. 2. Cardiomegaly and coronary artery atherosclerotic disease. Interlobular septal thickening is present within lower lobes and there is a new, small right pleural effusion. These findings likely reflect presence of mild cardiogenic edema. 3. In addition, there are some new patchy groundglass and nodular opacities in the lungs (including a new, irregular 0.9 cm nodule focus in the left lower lobe) which raise suspicion for superimposed pneumonia. 4. Moderate centrilobular emphysema. -PFTs were consistent with mild obstructive lung disease and a mild reduction in the DLCO. CTA evidence of Moderate centrilobular emphysema. Problem list #Shortness of breath multifactorial CHF, COPD and community-acquired pneumonia -Continue Solu-Medrol 40 mg every 8 -Continue lasix 40 mg BID IV -Monitor I/O target 1-2 L negative fluid balance -Continue ceftriaxone and azithromycin -Urine antigen for Legionella and Streptococcus pneumonia negative -Blood culture pending -Pulmonology consultation and cardiology consultation appreciated -Recent echocardiogram in the clinin yielded reserved function -CTA reveals new small right pleural effusion, will follow with chest x-ray tomorrow after Lasix treatment for any signs of improvement -We will obtain pulse ox on ambulation and nocturnal pulse ox -TRC and nebs #Paroxysmal atrial fibrillation not on anticoagulation, hypertension, hyperlipidemia, complete heart block status post pacemaker -Continue home medication except for metoprolol XL 25 daily, arch pad cementer Dr. Sahu is okay with discontinuing metoprolol for now giving bronchospasm -assess the need for teme monitor by cardiology #History of hepatitis C status post 2014 following with speech teacher at [place], last visit last month #History of breast cancer and non small cell lung cancer status post surgical excision Patient follow-up with Dr. alejandre last visit was early last year 2016. No history of recurrence, no nodular lesion on current CTA. DVT prophylaxis heparin subcutaneous, ALPS Diet heart healthy Code DNR/DNI Problem List: 1. CHF (congestive heart failure) 2. SOB (shortness of breath) 3. COPD (chronic obstructive pulmonary disease) 4. CAP (community acquired pneumonia) Pain Ratin Pain Location: N/A Pain Goal: Pain 4 or less Pain Plan: Acetomenophin Tomorrow's Labs & Rationales: JARED Rose MD,Shanna 05/05/17 0901: Attending MD Review Statement Attending Statement Attending MD Statement: examined this patient, discuss w/resident/PA/CHRISTM[employer] TREE CONTRACTOR, agreed w/resident/PA/CHRISTM[employer] TREE CONTRACTOR, reviewed EMR data (avail), discussed with nursing, discussed with case mgmt, amended to note Attending Assessment/Plan: Patient seen and examined. No events overnight reported by nursing staff. No events on telemetry. She maintains a paced rhythm. She does not appear to be in any acute distress. She appears more relaxed compared to yesterday. She reported sleeping through the night with no issues. When I inquired about how she felt she stated that it was too early to determine if she was feeling better overall. On examination she has adequate air entry bilaterally with mild expiratory rhonchi. Abdomen is soft and nontender. She has no peripheral edema. Problems: 1. COPD exacerbation 2. Cardiogenic edema on imaging. 3. Community-acquired pneumonia 4. Atrial fibrillation Plan: -Patient's complaint of dyspnea at rest and with exertion appears to be multifactorial secondary to above problems. -Continue bronchodilator therapy and intravenous steroid therapy. The patient continues to do well to the steroid dose may be tapered starting tomorrow. -Continue diuresis with Lasix 40 mg IV twice daily today. Will consider decreasing dose tomorrow if she continues to improve clinically. -Cardiology consultation appreciated. Outpatient interrogation of pacemaker showed normal function. Continue Cardizem and metoprolol for rate control. Follow-up with cardiology service regarding need for continued telemetry monitoring.She is not on anticoagulation therapy due to her history of hemorrhagic stroke. -Mobilize patient.
[2017-05-05 08:11] LABS: ABSOLUTE BASOPHIL COUNT 0 /CUMM (0.0-0.2); ABSOLUTE EOSINOPHIL COUNT 0 /CUMM (0.0-0.7); ABSOLUTE GRANULOCYTE CT 5.1 /CUMM (1.4-6.5); ABSOLUTE LYMPH COUNT 0.5 /CUMM (1.2-3.4); ABSOLUTE MONOCYTE COUNT 0.1 /CUMM (0.10-0.60); BASOPHIL % 0 % (0.0-2.0); EOSINOPHIL % 0 % (0-5); HEMATOCRIT 35.4 % (37-47); MEAN CORPUSCULAR HGB 29.8 PG (27.0-31.0); MEAN CORPUSCULAR HGB CONC 33.3 G/DL (33.0-37.0); MEAN CORPUSCULAR VOLUME 89.3 FL (81.0-99.0); MEAN PLATELET VOLUME 10.1 FL (7.4-10.4); RBC DISTRIBUTION WIDTH 13.8 % (11.5-14.5); RED BLOOD CELL CT 3.97 /CUMM (4.20-5.40); WHITE BLOOD CELL COUNT 5.6 /CUMM (4.8-10.8)
[2017-05-05 08:56] LABS: GRANULOCYTE % 90.6 % (42.2-75.2); PLATELET COUNT 258 /CUMM (130-400)
--- NOTE | 2017-05-05 09:38 | PN- Cardiology ---
Subjective Subjective: Telemetry reviewed. Paced rhythm throughout. Continued atrial fibrillation. No cardiac events overnight. Patient appears comfortable watching television but still claims to be short of breath. Objective Vital Signs and I&Os Vital Signs Date Time Temp Pulse Resp B/P B/P Pulse O2 O2 Flow FiO2 Mean Ox Delivery Rate 05/05 0656 98.7 59 20 150/80 98 Nasal 2.0L Cannula 05/05 0000 Nasal 2.0L Cannula 05/04 2215 98.1 59 20 134/72 98 05/04 1757 150/70 05/04 1756 150/70 05/04 1710 94 Nasal 2.0L Cannula 05/04 1655 99.2 66 18 150/70 05/04 1505 Nasal 2.0L Cannula 05/04 1255 98.2 59 18 159/72 98 Nasal 2.0L Cannula 05/04 1000 98.3 60 17 179/77 93 Room Air Intake & Output 05/05 1600 05/05 0800 05/05 0000 05/04 1600 05/04 0800 05/04 0000 Intake Total 100 200 Output Total 246 718 7051 Balance -300 -150 -800 Intake, Oral 100 200 Output, Urine 136 073 7246 Patient 150 lb Weight Weight Reported by Patient Measurement Method Physical Exam: On general exam patient comfortable Head normocephalic atraumatic Eyes sclera anicteric conjunctiva showed no pallor extraocular muscles were normal Neck no jugular venous distention no thyroid masses no palpable nodes Chest lungs were clear bilaterally Heart regular rhythm with a 1/6 systolic murmur Abdomen soft no organomegaly bowel sounds normal Extremities no clubbing cyanosis or edema Neurological prior right stroke deficit. Current Medications: Current Medications Sig/Elena Start time Last Medication Dose Route Stop Time Status Admin Acetaminophen 650 MG Q6P PRN 05/04 1330 AC 05/04 PO 2145 Albuterol Sulfate 3 ML Q6 PRN 05/04 1645 AC INH Amlodipine Besylate 5 MG DAILY 05/04 1454 AC 05/04 PO 1756 Aspirin Buffered 81 MG DAILY 05/04 1454 AC 05/04 PO 1754 Azithromycin 500 MG Q24H 05/05 1800 AC Sodium Chloride 250 ML IV Azithromycin 500 MG DAILY 05/04 1526 DC 05/04 Sodium Chloride 250 ML IV 1753 Ceftriaxone Sodium 1,000 MG Q24H 05/05 1800 AC IV Ceftriaxone Sodium 1,000 MG DAILY 05/04 1526 DC 05/04 IV 1754 Diltiazem HCl 180 MG DAILY 05/04 1454 AC 05/04 PO 1756 Furosemide 40 MG 7:30 AM, & 4:30 PM 05/04 1630 AC 05/04 IV 1800 Furosemide 40 MG ONCE ONE 05/04 1145 DC 05/04 IV 05/04 1146 1149 Furosemide 0 .STK-MED ONE 05/04 1144 DC IV Heparin Sodium 5,000 UNIT Q8 05/04 1400 AC 05/05 (Porcine) SC 0536 Latanoprost 1 GTT AT BEDTIME 05/04 2200 AC 05/04 OPH 2127 Levothyroxine Sodium 0.075 MG DAILY AC 05/04 1455 AC 05/05 PO 0536 Losartan Potassium 100 MG DAILY 05/04 1507 AC 05/04 PO 1757 Methylprednisolone 40 MG Q8 05/04 1525 AC 05/05 IV 0536 Metoprolol Succinate 25 MG DAILY 05/04 1456 DC PO Results Last 48 Hrs of Labs/Mics: Laboratory Tests 05/05/17 0620: Anion Gap 11, Estimated GFR 60, BUN/Creatinine Ratio 18.9, CBC w Diff NO MAN DIFF REQ, RBC 3.97 L, MCV 89.3, MCH 29.8, RDW 13.8, MPV 10.1, Gran % 90.6 H, Lymphocytes % 8.5 L, Monocytes % 0.9 L, Eosinophils % 0, Basophils % 0, Absolute Granulocytes 5.1, Absolute Lymphocytes 0.5 L, Absolute Monocytes 0.1, Absolute Eosinophils 0, Absolute Basophils 0, PUBS MCHC 33.3 05/04/17 0844: Urine Color YEL, Urine Clarity HAZY H, Urine pH 6.0, Ur Specific [place] 1.015, Urine Protein TRACE H, Urine Ketones NEG, Urine Nitrite NEG, Urine Bilirubin NEG, Urine Urobilinogen 0.2, Ur Leukocyte Esterase SMALL H, Ur Microscopic SEDIMENT EXAMINED, Urine RBC 1-3, Urine WBC 25-50 H, Ur Epithelial Cells MOD H , Urine Bacteria MANY H, Urine Hemoglobin NEG, Urine Glucose NEG 05/04/17 0830: Anion Gap 11, Estimated GFR 60, BUN/Creatinine Ratio 21.1, Glucose 97, Calcium 9.1, Total Bilirubin 0.9, AST 38 H, ALT 43, Alkaline Phosphatase 103, Troponin I < 0.01, [id number]-R-Pgyfghdtxhi Pept 1800 H, Total Protein 7.2, Albumin 3.8, Globulin 3.4, Albumin/Globulin Ratio 1.1, D-Dimer High Sensitivty 1217 H, CBC w Diff NO MAN DIFF REQ, RBC 4.18 L, MCV 88.5, MCH 29.5, RDW 13.5, MPV 9.7, Gran % 74.5, Lymphocytes % 9.9 L, Monocytes % 14.6 H, Eosinophils % 0.8, Basophils % 0.2, Absolute Granulocytes 5.8, Absolute Lymphocytes 0.8 L, Absolute Monocytes 1.1 H, Absolute Eosinophils 0.1, Absolute Basophils 0, PUBS MCHC 33.4 Microbiology 05/04 1948 URINE ROUT: Legionella Antigen - COMP 05/04 1948 URINE ROUT: Streptococcus pneumoniae Antigen (M - COMP Recent Imaging Studies: Chest CTA1. No pulmonary embolism. 2. Cardiomegaly and coronary artery atherosclerotic disease. Interlobular septal thickening is present within lower lobes and there is a new, small right pleural effusion. These findings likely reflect presence of mild cardiogenic edema. 3. In addition, there are some new patchy groundglass and nodular opacities in the lungs (including a new, irregular 0.9 cm nodule focus in the left lower lobe) which raise suspicion for superimposed pneumonia. 4. Moderate centrilobular emphysema Assessment/Plan Assessment/Plan In summaryhe patient is an 81-year-old woman with a past medical history of complete heart block (status post Medtronic pacemaker implantation), atrial fibrillation, hypertension, hypothyroidism and a prior hemorrhagic stroke, as well as breast CA and lung CVA, status post right upper lobectomy. She presents to our emergency room with symptoms of increasing dyspnea which have been progressive over a period of approximately one month; however, acutely worsening over the past several days. Her shortness of breath is multifactorial. Pneumonia, COPD and mild congestive heart failure. Her symptoms of shortness of breath appear disproportionate to objective findings. Saturation on 2 L is satisfactory. Respiratory effort appears un exaggerated. Would continue with IV Lasix 20 mg twice a day for another 24 hours. Discharge plans will be based on objective oximetry findings and to check if desaturates with ambulation. Follow-up chest x-ray or CT scan to document improvement may be an option.. She has a permanent pacemaker that is functioning well and underlying atrial fibrillation. She is not on anticoagulants because of previous hemorrhagic stroke. Left ventricular Systolic function is normal. Continue telemetry? Yes
--- NOTE | 2017-05-05 10:19 | Discharge Summary ---
Visit Information Visit Dates Admission Date: 05/04/17 Discharge Date: 05/09/16 Hospital Course Course Attending Physician: Shanna Rose MD Primary Care Physician: Citlali INGRAM,[facility] Course: Ms. 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 She reported nonproductive cough, paroxysmal nocturnal dyspnea, denied any fever, chill, chest pain, palpitation, ear pain, sore throat, sinus pain, headache, blurry vision. On admission vital signs temperature 97.9, pulse 59 regular, blood pressure 190/ 80, oxygen saturation 94% on room air and 99% on 2 L Labs pertinent to WBC 7.8, H&H 12.4/37, platelet 278, d-dimer 1217, proBNP 1800, electrolytes within normal, bicarbonate 27 Chest x-ray 05/04/17 IMPRESSION: Mild right basilar atelectasis with adjacent pleural thickening versus trace effusion. No additional consolidation. Mild central vascular prominence without overt edema. CTA 05/04/17 IMPRESSION: 1. No pulmonary embolism. 2. Cardiomegaly and coronary artery atherosclerotic disease. Interlobular septal thickening is present within lower lobes and there is a new, small right pleural effusion. These findings likely reflect presence of mild cardiogenic edema. 3. In addition, there are some new patchy groundglass and nodular opacities in the lungs (including a new, irregular 0.9 cm nodule focus in the left lower lobe) which raise suspicion for superimposed pneumonia. 4. Moderate centrilobular emphysema. Chest x-ray 05/06/17 IMPRESSION: Cardiomegaly. Interval improvement/resolution of pulmonary edema compared to 05/04/2017. There is a trace residual right pleural effusion. -PFTs were consistent with mild obstructive lung disease and a mild reduction in the DLCO. CTA evidence of Moderate centrilobular emphysema. Problem list #Shortness of breath multifactorial CHF, COPD and community-acquired pneumonia Patient reported progressive shortness of breath that's not improving with Lasix nor inhalers as an outpatient. Patient had mildly elevated proBNP 1800 with history of lower extremity edema that improved with IV Lasix. Patient had more of subjective shortness of breath out of proportion of objective findings, pulmonology and cardiology consultations were obtained with recommendation to treat patient for COPD exacerbation as well as CAP and mild exacerbation of CHF based on CT chest findings that yielded mild vascular congestion, groundglass opacity that could represent pneumonia and moderate emphysema. Patient was treated with Lasix 40 IV twice a day with close monitor of I/O target 1-2 L negative fluid balance that was switched after 2 days to home dose po Lasix 40 a.m. and 20 p.m. Patient was treated with steroid as well, was started on admission on Solu-Medrol 40 mg every 8 that switched later to prednisone tapered dose. In addtion to coverage for CAP with ceftriaxone and azithromycin that was switched to oral Augmentin to finish total of 7 days of antibiotic upon discharge. Follow-up chest x-ray revealed improvement in the pulmonary congestion, opacities and right pleural effusion. Urine antigen for Legionella and Streptococcus pneumonia negative, blood culture continued to be negative. Patient had recent echocardiogram in the office that revealed preserved function. Upon discharge patient had significant improvement of shortness of breath, cough resolved. Was instructed to finish her steroid taper dose, Augmentin and nebulizers/inhalers. #Paroxysmal atrial fibrillation not on anticoagulation, hypertension, hyperlipidemia, complete heart block status post pacemaker Continue home medication except for metoprolol XL 25 daily for bronchospasm, was restarted upon discharge. 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 alejandre last visit was early last year 2017. No history of recurrence, no nodular lesion on current CTA. DVT prophylaxis heparin subcutaneous, ALPS Diet heart healthy Code DNR/DNI On day of discharge, patient slipped while walking up the bathroom, denied hitting her head, had a small laceration on the right wrist. Allergies: Coded Allergies: phenytoin (RED RASH FROM HEAD TO TOE 07/07/15) prochlorperazine (TONGUE SWELLS 07/07/15) melatonin (Intermediate, NIGHTMARES, DISORIENTATION, AGITATION 07/07/15) Disposition Summary Disposition Principal Diagnosis: COPD exacerbation Additional Diagnosis: Mild congestive heart failure exacerbation Community-acquired pneumonia Discharge Disposition: home health services Discharge Instructions General Discharge Information Code Status: Do Not Resucitate/Intubat Patient's Diet: Heart healthy Patient's Activity: As tolerated Follow-Up Instructions/Appts: -Please follow-up with your primary care physician within 1 week after discharge -Please follow-up with supervisor dehydrogenation Dr. Hernandez after discharge -Please follow-up with global implementation manager Dr. Hilliard after discharge -Please take antibiotic as directed -Please take the prednisone as directed Medications at Discharge Discharge Medications: Continue taking these medications: Potassium Chloride (Klor-Con M20) 20 MEQ TAB.ER.PRT 1 Tablet ORAL DAILY Comments: NOT TAKEN Levothyroxine Sodium (Levothyroxine Sodium) 75 MCG TABLET 1 Tablet ORAL DAILY BEFORE BREAKFAST Comments: Last Taken:05/09/17 Time:6AM Multivit-Min/FA/Lycopen/Lutein (Centrum Silver Tablet) 0.4 MG-300 MCG-250 MCG TABLET 1 Tablet ORAL DAILY Comments: NOT TAKEN Travoprost (Travatan Z) 0.004 % DROPS 1 Drop Right Eye Every night Comments: LATANOPROST ADMINISTERED IN PLACE Last Taken:05/08/17 Time:10PM Aspirin (Ecotrin*) 81 MG TABLET.DR 1 Tablet ORAL DAILY Comments: Last Taken:05/09/16 Time:9AM [place]-3S/Dha/Epa/Fish Oil ([place]-3 Fish Oil 1,000 MG Sfgl) 300-1,000MG CAPSULE 1 Capsule ORAL TWICE DAILY Diltiazem HCl (Diltiazem 24HR ER) 180 MG CAP.ER.24H 1 Capsule ORAL DAILY Comments: Last Taken:05/09/16 Time:9AM Calcium Carbonate/Vitamin D3 (Calcium 500 + D Tablet) 500 MG-400 TABLET 1 Tablet ORAL TWICE DAILY Comments: NOT TAKEN Amlodipine Besylate (Amlodipine Besylate) 5 MG TABLET 1 Tablet ORAL DAILY Comments: Last Taken:05/09/16 Time:6AM Furosemide (Furosemide) 40 MG TABLET 1 Tablet ORAL DAILY Comments: 20 MG DOSE GIVEN Furosemide (Furosemide) 20 MG TABLET 1 Tablet ORAL 1200 Comments: Last Taken:05/09/17 Time:9AM Metoprolol Succ XL (Toprol XL) 25 MG TAB 1 Tablet ORAL DAILY Comments: BETA JF HELD 2/2 RESPIRATORY DISTRESS DURING STAY, RESUME AT D/C Valsartan (Valsartan) 320 MG TABLET 1 Tablet ORAL DAILY Comments: LOSARTAN ADMINISTERED IN PLACE Last Taken:05/09/17 Time:9AM Start taking the following new medications: Ipratropium [place] (Atrovent Hfa) 17 MCG/ACTUATION HFA.AER.AD 2 Puff Both sides of nose TWICE DAILY Qty = 30 No Refills Instructions: . Albuterol Sulfate (Albuterol Sulfate) 0.63 MG/3 ML VIAL.NEB 1 Vial Inhale Solution Q 4 HR Qty = 150 No Refills Instructions: . Albuterol Sulfate (Proair Hfa) 90 MCG HFA.AER.AD 2 Puff Inhale through mouth EVERY 4-6 HOURS NEEDED as needed for copd Qty = 1 No Refills Instructions: . Amoxicillin/Potassium Clav (Augmentin 875-125 Tablet) 875 MG-125 MG TABLET 1 Tablet ORAL TWICE DAILY Qty = 3 No Refills Instructions: . Comments: Last Taken:05/09/17 Time:9AM Prednisone (Prednisone) 10 MG TABLET 1 Tablet ORAL DAILY Qty = 16 No Refills Instructions: .please take 3 tabs on 05/10 take 2 tabs on 05/11, 05/12 take 1 tab on 05/13, 05/14 and then stop Comments: Last Taken:05/09/17 Time:9AM Copies To: Craig INGRAM,Rasta Sanz; Roque Godwin MD; David INGRAM,Raghu
--- NOTE | 2017-05-05 10:55 | PN- Pulmonary ---
Subjective HPI/Critical Care Issues: pt seen and examined somewhat better symptoms of dyspnea persist no wheezing today no objective obvious evidence of significant disease Objective Current Medications: Current Medications Sig/Elena Start time Last Medication Dose Route Stop Time Status Admin Acetaminophen 650 MG Q6P PRN 05/04 1330 AC 05/04 PO 2145 Albuterol Sulfate 3 ML Q6 PRN 05/04 1645 AC INH Amlodipine Besylate 5 MG DAILY 05/04 1454 AC 05/04 PO 1756 Aspirin Buffered 81 MG DAILY 05/04 1454 AC 05/04 PO 1754 Azithromycin 500 MG Q24H 05/05 1800 AC Sodium Chloride 250 ML IV Azithromycin 500 MG DAILY 05/04 1526 DC 05/04 Sodium Chloride 250 ML IV 1753 Ceftriaxone Sodium 1,000 MG Q24H 05/05 1800 AC IV Ceftriaxone Sodium 1,000 MG DAILY 05/04 1526 DC 05/04 IV 1754 Diltiazem HCl 180 MG DAILY 05/04 1454 AC 05/04 PO 1756 Furosemide 40 MG 7:30 AM, & 4:30 PM 05/04 1630 AC 05/04 IV 1800 Furosemide 40 MG ONCE ONE 05/04 1145 DC 05/04 IV 05/04 1146 1149 Furosemide 0 .STK-MED ONE 05/04 1144 DC IV Heparin Sodium 5,000 UNIT Q8 05/04 1400 AC 05/05 (Porcine) SC 0536 Latanoprost 1 GTT AT BEDTIME 05/04 2200 AC 05/04 OPH 2127 Levothyroxine Sodium 0.075 MG DAILY AC 05/04 1455 AC 05/05 PO 0536 Losartan Potassium 100 MG DAILY 05/04 1507 AC 05/04 PO 1757 Methylprednisolone 40 MG Q8 05/04 1525 AC 05/05 IV 0536 Metoprolol Succinate 25 MG DAILY 05/04 1456 DC PO Vital Signs & I&O Last 24 Hrs of Vitals and I&O: Vital Signs Date Time Temp Pulse Resp B/P B/P Pulse O2 O2 Flow FiO2 Mean Ox Delivery Rate 05/05 1044 Nasal 2.0L Cannula 05/05 0656 98.7 59 20 150/80 98 Nasal 2.0L Cannula 05/05 0000 Nasal 2.0L Cannula 05/04 2215 98.1 59 20 134/72 98 05/04 1757 150/70 05/04 1756 150/70 05/04 1710 94 Nasal 2.0L Cannula 05/04 1655 99.2 66 18 150/70 05/04 1505 Nasal 2.0L Cannula 05/04 1255 98.2 59 18 159/72 98 Nasal 2.0L Cannula Intake & Output 05/05 1600 05/05 0800 05/05 0000 Intake Total 100 200 Output Total 019 830 3265 Balance -300 -150 -800 Intake, Oral 100 200 Output, Urine 048 696 7132 Exam Other Physical Findings: gen awake and alert, speaks in full sentences, ambulated to restroom comfortably heent ncat cvs s1, s2 lungs no wheezing today (resolved) abd soft bs+ ext without any edema Results Last 24 Hrs of Lab Results: Laboratory Tests 05/05/17 0620: Anion Gap 11, Estimated GFR 60, BUN/Creatinine Ratio 18.9, CBC w Diff NO MAN DIFF REQ, RBC 3.97 L, MCV 89.3, MCH 29.8, RDW 13.8, MPV 10.1, Gran % 90.6 H, Lymphocytes % 8.5 L, Monocytes % 0.9 L, Eosinophils % 0, Basophils % 0, Absolute Granulocytes 5.1, Absolute Lymphocytes 0.5 L, Absolute Monocytes 0.1, Absolute Eosinophils 0, Absolute Basophils 0, PUBS MCHC 33.3 Impression/Plan Impression/Plan Impression/Plan: Impression 81 year old woman. Known to me from the office. S/p Right upper lobectomy, lymph node dissection. History of transthoracic biopsy of her RUL mass and the findings were consistent with non-small carcinoma. She has been experiencing AHRDY for the past few weeks. She has seen Dr. Weiner and had a CXR consistent with post operative changes. She has had some deconditioning. No chest pain, no fever, no cough. No sick contacts or travel history. PFTs were consistent with mild obstructive lung disease and a mild reduction in the DLCO. She does have atrial fibrillation without anticoagulation due to a history of a remote stroke. She is followed by Dr. Weiner for her cardiology needs. She has been rate controlled. CTA without PE. LLL GGO. No wbc, clear phlegm. Wheezing on exam. Plan -cardiology appreciated -ins/outs, diuresis -continue solumedrol 40mg iv q8h -trc/nebs -zithromax course -possible deconditioning, consideration for rehab -possibly new respiratory baseline DVT prophylaxis at all times discussed with daughter as well
[2017-05-05 15:11] VITALS: BP 132/54
[2017-05-05 22:49] VITALS: BP 120/80
[2017-05-06 06:34] VITALS: BP 140/70
--- NOTE | 2017-05-06 08:38 | PN- Housestaff ---
Phyllis INGRAM,[facility] 05/06/17 0835: Subjective Follow-up For: COPD exacerbation CHF excerbation CAP Subjective: Patient was seen and examined this morning, vital signs are stable, afebrile, had pulse ox on ambulation satting 96% on room air. Nocturnal pulse ox didn't reveal significant hypoxia. Patient didn't sleep last night because of the pulse ox and the ekg monitor tech were bothering her. However this morning she looks much better, saturating 95% on room air, denied shortness of breath, cough continue to be nonproductive, denied chest pain, palpitation, nausea or vomiting. No bowel movement MiraLAX was ordered. Review of Systems Constitutional: Reports: see HPI. Objective Last 24 Hrs of Vital Signs/I&O Vital Signs Date Time Temp Pulse Resp B/P B/P Pulse O2 O2 Flow FiO2 Mean Ox Delivery Rate 05/06 0634 97.9 59 20 140/70 95 Room Air 05/06 0000 94 Room Air 05/05 2249 97.9 60 16 120/80 97 Nasal Cannula 05/05 1800 98 Nasal 2.0L Cannula 05/05 1731 96 Nasal 2.0L Cannula 05/05 1511 98.4 60 20 132/54 98 Nasal 2.0L Cannula 05/05 1111 99 Nasal 2.0L Cannula 05/05 1107 59 142/60 05/05 1106 59 142/60 05/05 1044 Nasal 2.0L Cannula Intake & Output 05/06 1600 05/06 0800 05/06 0000 Intake Total 120 450 Output Total 300 300 Balance -180 150 Intake, IV 250 Intake, Oral 120 200 Output, Urine 300 300 Physical Exam General Appearance: Alert, Oriented X3, Cooperative, No Acute Distress Skin: No Rashes, No Breakdown, No Significant Lesion Skin Temp/Moisture Exam: Warm/Dry HEENT: Atraumatic, PERRLA, EOMI, Mucous Membr. moist/pink Neck: Supple Cardiovascular: Regular Rate, Normal S1, Normal S2, No Murmurs Lungs: Clear to Auscultation, Normal Air Movement Abdomen: Normal Bowel Sounds, Soft, No Tenderness Neurological: Normal Gait, Normal Speech, Strength at 5/5 X4 Ext, Normal Tone, Sensation Intact, Cranial Nerves 3-12 NL, Reflexes 2+ Extremities: No Clubbing, No Cyanosis, No Edema, Normal Pulses Assessment/Plan Assessment: Ms. 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 Chest x-ray IMPRESSION: Mild right basilar atelectasis with adjacent pleural thickening versus trace effusion. No additional consolidation. Mild central vascular prominence without overt edema. CTA IMPRESSION: 1. No pulmonary embolism. 2. Cardiomegaly and coronary artery atherosclerotic disease. Interlobular septal thickening is present within lower lobes and there is a new, small right pleural effusion. These findings likely reflect presence of mild cardiogenic edema. 3. In addition, there are some new patchy groundglass and nodular opacities in the lungs (including a new, irregular 0.9 cm nodule focus in the left lower lobe) which raise suspicion for superimposed pneumonia. 4. Moderate centrilobular emphysema. -PFTs were consistent with mild obstructive lung disease and a mild reduction in the DLCO. CTA evidence of Moderate centrilobular emphysema. Problem list #Shortness of breath multifactorial CHF, COPD and community-acquired pneumonia -Decrease Solu-Medrol to 40 mg BID and switch to predinone in am -Discontinue lasix IV and start po lasix home dose per cardiology -Monitor I/O target 1-2 L negative fluid balance---over the last 24 h it is positive by 500 ml -Discontinue ceftriaxone and azithromycin and start Augmentin 750 mg twice a day to finish total of 7 days antibiotic -Urine antigen for Legionella and Streptococcus pneumonia negative -Blood culture pending -Pulmonology consultation and cardiology consultation appreciated -Recent echocardiogram in the clinin yielded reserved function -Repeated chest x-ray revealed improvement in the right pleural effusion, interval improvement or resolution of pulmonary edema compared to last chest x- ray on admission 05/04/17 -Pulse ox on ambulation revealed 95% room air, nocturnal pulse oximetry didn't reveal any significant hypoxia -TRC and nebs #Paroxysmal atrial fibrillation not on anticoagulation, hypertension, hyperlipidemia, complete heart block status post pacemaker -Continue home medication except for metoprolol XL 25 daily, strainer tender is okay with discontinuing metoprolol for now giving bronchospasm #History of hepatitis C status post 2014 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 alejandre last visit was early last year 2016. No history of recurrence, no nodular lesion on current CTA. DVT prophylaxis heparin subcutaneous, ALPS Diet heart healthy Code DNR/DNI Patient is anticipated for discharge in am. Problem List: 1. COPD (chronic obstructive pulmonary disease) 2. CAP (community acquired pneumonia) 3. SOB (shortness of breath) Pain Ratin Pain Location: N/A Pain Goal: Pain 4 or less Pain Plan: See medication Tomorrow's Labs & Rationales: JARED Rose MD,Shanna 05/06/17 1218: Attending MD Review Statement Attending Statement Attending MD Statement: examined this patient, discuss w/resident/PA/ACCOUNT LIAISON, agreed w/resident/PA/ACCOUNT LIAISON, reviewed EMR data (avail), discussed with nursing, discussed with case mgmt, amended to note Attending Assessment/Plan: Patient seen and examined. She reports feeling better this morning. She reports being able to get up and go to the bathroom brushing her teeth are returned to bed without feeling short of breath. She states this is significantly better than presentation. She however reported that she had poor sleep at night. She denies chest pain. Denies palpitations. On examination she does not appear short of breath. She has adequate entry bilaterally and lungs are clear to auscultation. Heart sounds remain irregular. Abdomen is soft and nontender. Chest x-ray was done today that shows improvement of initially noted pulmonary congestion. He has small residual right-sided pleural effusion. Problems: 1. COPD exacerbation 2. Cardiogenic edema on imaging. 3. Community-acquired pneumonia 4. Atrial fibrillation recommendations: Recommendations: -Continue bronchodilator therapy for COPD exacerbation. Taper steroid therapy as recommended by the pulmonology service. -She remains afebrile. Leukocytosis likely secondary to steroids. Discontinue IV antibiotic therapy and begin patient on Augmentin. Complete 7 days of antibiotic therapy for committee acquired pneumonia. -Chest x-ray showing improvement of her pulmonary edema. Discontinue IV Lasix and begin patient on Lasix 20 mg orally daily tomorow. She should follow closely with cardiology service as an outpatient. -Anticipate discharge tomorrow if patient remains clinically stable on the above regimen. -Physical therapy consultation for safe discharge planning.
[2017-05-06 08:52] LABS: ABSOLUTE BASOPHIL COUNT 0 /CUMM (0.0-0.2); ABSOLUTE EOSINOPHIL COUNT 0 /CUMM (0.0-0.7); ABSOLUTE LYMPH COUNT 0.6 /CUMM (1.2-3.4); BASOPHIL % 0 % (0.0-2.0); EOSINOPHIL % 0 % (0-5); RBC DISTRIBUTION WIDTH 13.6 % (11.5-14.5)
--- NOTE | 2017-05-06 09:07 | RADIOLOGY REPORT ---
EXAMINATION: XR CHEST CLINICAL INFORMATION: Shortness of breath. COMPARISON: CXR from 05/04/2017 TECHNIQUE: 2 views of the chest were obtained. FINDINGS: Cardiomegaly, mitral valve annular calcification, and dual-chamber pacemaker in place. Interval improvement in peribronchial interstitial thickening compared to 05/04/2017. No radiographic evidence of active pulmonary edema. The trace residual right pleural effusion appears decreased compared to 05/04/2017. The right diaphragm is mildly elevated due to volume loss from prior upper lobectomy. The vague opacity projecting over the right midlung appears to represent the costochondral junction calcification of the anterior fourth rib. No acute skeletal findings. IMPRESSION: Cardiomegaly. Interval improvement/resolution of pulmonary edema compared to 05/04/2017. There is a trace residual right pleural effusion.
[2017-05-06 09:08] LABS: ABSOLUTE GRANULOCYTE CT 10.7 /CUMM (1.4-6.5); ABSOLUTE MONOCYTE COUNT 0.4 /CUMM (0.10-0.60); HEMATOCRIT 34.8 % (37-47); MEAN CORPUSCULAR HGB 29.5 PG (27.0-31.0); MEAN CORPUSCULAR HGB CONC 33.2 G/DL (33.0-37.0); MEAN CORPUSCULAR VOLUME 88.7 FL (81.0-99.0); RED BLOOD CELL CT 3.92 /CUMM (4.20-5.40)
[2017-05-06 09:13] LABS: WHITE BLOOD CELL COUNT 11.8 /CUMM (4.8-10.8)
[2017-05-06 10:07] LABS: PLATELET COUNT 282 /CUMM (130-400)
--- NOTE | 2017-05-06 10:18 | PN- Pulmonary ---
Subjective HPI/Critical Care Issues: pt seen and examined feels better today on room air Objective Current Medications: Current Medications Sig/Elena Start time Last Medication Dose Route Stop Time Status Admin Acetaminophen 650 MG .STK-MED ONE 05/06 0016 DC PO 05/06 0017 Acetaminophen 650 MG Q6P PRN 05/04 1330 AC 05/06 PO 0017 Albuterol Sulfate 3 ML Q6 05/05 1200 AC 05/06 INH 0913 Albuterol Sulfate 3 ML Q6 PRN 05/04 1645 DC INH 05/05 1159 Amlodipine Besylate 5 MG DAILY 05/04 1454 AC 05/05 PO 1106 Aspirin Buffered 81 MG DAILY 05/04 1454 AC 05/05 PO 1105 Azithromycin 500 MG Q24H 05/05 1800 AC 05/05 Sodium Chloride 250 ML IV 1711 Ceftriaxone Sodium 1,000 MG Q24H 05/05 1800 AC 05/05 IV 1711 Diltiazem HCl 180 MG DAILY 05/04 1454 AC 05/05 PO 1105 Furosemide 40 MG 7:30 AM, & 4:30 PM 05/04 1630 AC 05/05 IV 1710 Heparin Sodium 5,000 UNIT Q8 05/04 1400 AC 05/06 (Porcine) SC 0637 Latanoprost 1 GTT AT BEDTIME 05/04 2200 AC 05/05 OPH 1917 Levothyroxine Sodium 0.075 MG DAILY AC 05/04 1455 AC 05/06 PO 0637 Losartan Potassium 100 MG DAILY 05/04 1507 AC 05/05 PO 1107 Methylprednisolone 40 MG Q12 05/06 1000 AC IV Methylprednisolone 40 MG Q8 05/04 1525 DC 05/06 IV 0637 Polyethylene Glycol 17 GM DAILY 05/06 1000 AC PO Zolpidem Tartrate 5 MG AT BEDTIME 05/06 2200 AC PO Vital Signs & I&O Last 24 Hrs of Vitals and I&O: Vital Signs Date Time Temp Pulse Resp B/P B/P Pulse O2 O2 Flow FiO2 Mean Ox Delivery Rate 05/06 0913 96 Room Air Room Air 05/06 0634 97.9 59 20 140/70 95 Room Air 05/06 0000 94 Room Air 05/05 2249 97.9 60 16 120/80 97 Nasal Cannula 05/05 1800 98 Nasal 2.0L Cannula 05/05 1731 96 Nasal 2.0L Cannula 05/05 1511 98.4 60 20 132/54 98 Nasal 2.0L Cannula 05/05 1111 99 Nasal 2.0L Cannula 05/05 1107 59 142/60 05/05 1106 59 142/60 05/05 1044 Nasal 2.0L Cannula Intake & Output 05/06 1600 05/06 0800 05/06 0000 Intake Total 120 450 Output Total 300 300 Balance -180 150 Intake, IV 250 Intake, Oral 120 200 Output, Urine 300 300 Exam Other Physical Findings: gen awake and alert, speaks in full sentences, ambulated to restroom comfortably heent ncat cvs s1, s2 lungs no wheezing today (resolved) abd soft bs+ ext without any edema Results Last 24 Hrs of Lab Results: Laboratory Tests 05/06/17 0620: CBC w Diff NO MAN DIFF REQ, RBC 3.92 L, MCV 88.7, MCH 29.5, RDW 13.6, MPV 10.0, Gran % 91.0 H, Lymphocytes % 5.2 L, Monocytes % 3.8, Eosinophils % 0, Basophils % 0, Absolute Granulocytes 10.7 H, Absolute Lymphocytes 0.6 L, Absolute Monocytes 0.4, Absolute Eosinophils 0, Absolute Basophils 0, PUBS MCHC 33.2 Impression/Plan Impression/Plan Impression/Plan: Impression 81 year old woman. * multifactorial subjective dyspnea can be from CHF and COPD, however mild and maybe new respiratory baseline, she is feeling better today Plan -cardiology appreciated -ins/outs, diuresis -continue solumedrol 40mg iv q12h, tomorrow plan for po prednisone -ambien 5mg once -trc/nebs -zithromax course -possible deconditioning, consideration for rehab -possibly new respiratory baseline DVT prophylaxis at all times discussed with daughter as well
[2017-05-06] MEDS ORDERED: AUGMENTIN 875-1 EACH PO (14:15)
[2017-05-06] MEDS ORDERED: PREDNISONE10 M2 PO (14:15)
--- NOTE | 2017-05-06 14:18 | Patient Discharge Instructions ---
Discharge Instructions General Discharge Information You were seen/treated for: COPD exacerbation Mild CHF exacerbation Community-acquired pneumonia Special Instructions: -Please follow-up with your primary care physician within 1 week after discharge -Please follow-up with utility driver Dr. Hernandez after discharge -Please follow-up with liquor store manager Dr. Hilliard after discharge -Please take antibiotic as directed -Please take the prednisone as directed Acute Coronary Syndrome Inclusion Criteria At DC or during hospital stay patient has or had the following: ACS DIAGNOSIS No Discharge Core Measures Meds if any: Prescribed or Continued at Discharge Meds if any: NOT Prescribed or Continued at Discharge Congestive Heart Failure Inclusion Criteria At DC or during hospital stay patient has or had the following: CHF DIAGNOSIS No Discharge Core Measures Meds if any: Prescribed or Continued at Discharge Meds if any: NOT Prescribed or Continued at Discharge Cerebrovascular accident Inclusion Criteria At DC or during hospital stay patient has or had the following: CVA/TIA Diagnosis No Discharge Core Measures Meds if any: Prescribed or Continued at Discharge Meds if any: NOT Prescribed or Continued at Discharge Venous thromboembolism Inclusion Criteria VTE Diagnosis No VTE Type NONE VTE Confirmed by (Test) NONE Discharge Core Measures - Per Current guidelines, there needs to be overlap - treatment for the first 5 days of Warfarin therapy. - If discharged on Warfarin prior to 5 days of - overlap therapy, the patient will need to be - assessed for post discharge needs including - *Post discharge parental anticoagulation - *Warfarin and/or parental anticoagulation education - *Follow up date to check INR post discharge At least 5 days overlap therapy as Inpatient Yes Meds if any: Prescribed or Continued at Discharge Note: Overlap Therapy is Warfarin and Anticoagulant Meds if any: NOT Prescribed or Continued at Discharge
[2017-05-06 14:58] VITALS: BP 140/58
--- NOTE | 2017-05-06 15:20 | PN- Cardiology ---
Subjective Subjective: Feels her breathing is improving but not yet at baseline. Denies chest pain or palpitations. Objective Vital Signs and I&Os Vital Signs Date Time Temp Pulse Resp B/P B/P Pulse O2 O2 Flow FiO2 Mean Ox Delivery Rate 05/06 1458 97.7 60 20 140/58 93 Room Air 05/06 1021 59 140/70 05/06 1021 59 140/70 05/06 0913 96 Room Air Room Air 05/06 0634 97.9 59 20 140/70 95 Room Air 05/06 0000 94 Room Air 05/05 2249 97.9 60 16 120/80 97 Nasal Cannula 05/05 1800 98 Nasal 2.0L Cannula 05/05 1731 96 Nasal 2.0L Cannula 05/05 1511 98.4 60 20 132/54 98 Nasal 2.0L Cannula Intake & Output 05/06 1600 05/06 0800 05/06 0000 05/05 1600 05/05 0800 05/05 0000 Intake Total 120 450 800 100 200 Output Total 300 300 228 454 2623 Balance -180 150 500 -150 -800 Intake, IV 250 Intake, Oral 120 200 800 100 200 Number 0 Bowel Movements Output, Urine 300 [phone] [id number] Physical Exam: General: no apparent distress. Alert. Eyes: No obvious scleral icterus. HEENT: No jugular venous distention or abnormal jugular venous pulsations. Cardiovascular: Normal intensity S1/S2. Pacemaker noted Respiratory: Lungs clear to auscultation bilaterally. Abdomen: Soft, nontender with no guarding or rebound tenderness. Musculoskeletal: No clubbing or cyanosis noted; trace lower extremity edema Skin: Warm Neurologic: No gross focal deficits noted. Current Medications: Current Medications Sig/Elena Start time Last Medication Dose Route Stop Time Status Admin Acetaminophen 650 MG .STK-MED ONE 05/06 0016 DC PO 05/06 0017 Acetaminophen 650 MG Q6P PRN 05/04 1330 AC 05/06 PO 0017 Albuterol Sulfate 3 ML Q6 05/05 1200 AC 05/06 INH 0913 Amlodipine Besylate 5 MG DAILY 05/04 1454 AC 05/06 PO 1021 Amoxicillin/ 875 MG Q12 05/06 1306 AC Clavulanate Potassium PO 05/10 2300 Aspirin Buffered 81 MG DAILY 05/04 1454 AC 05/06 PO 1021 Azithromycin 500 MG Q24H 05/05 1800 DC 01/04 Sodium Chloride 250 ML IV 1711 Ceftriaxone Sodium 1,000 MG Q24H 05/05 1800 DC 05/05 IV 1711 Diltiazem HCl 180 MG DAILY 05/04 1454 AC 05/06 PO 1021 Furosemide 40 MG DAILY 05/07 1000 AC PO Furosemide 20 MG 5PM 05/06 1700 AC PO Furosemide 40 MG 7:30 AM, & 4:30 PM 05/04 1630 DC 05/06 IV 1020 Heparin Sodium 5,000 UNIT Q8 05/04 1400 AC 05/06 (Porcine) SC 1503 Latanoprost 1 GTT AT BEDTIME 05/04 2200 AC 05/05 OPH 1917 Levothyroxine Sodium 0.075 MG DAILY AC 05/04 1455 AC 05/06 PO 0637 Losartan Potassium 100 MG DAILY 05/04 1507 AC 05/06 PO 1021 Methylprednisolone 40 MG Q12 05/06 1000 AC 05/06 IV 1025 Methylprednisolone 40 MG Q8 05/04 1525 DC 05/06 IV 0637 Polyethylene Glycol 17 GM DAILY 05/06 1000 AC 05/06 PO 1020 Zolpidem Tartrate 5 MG AT BEDTIME 05/06 2200 AC PO Results Last 48 Hrs of Labs/Mics: Laboratory Tests 05/06/17 0620: CBC w Diff NO MAN DIFF REQ, RBC 3.92 L, MCV 88.7, MCH 29.5, RDW 13.6, MPV 10.0, Gran % 91.0 H, Lymphocytes % 5.2 L, Monocytes % 3.8, Eosinophils % 0, Basophils % 0, Absolute Granulocytes 10.7 H, Absolute Lymphocytes 0.6 L, Absolute Monocytes 0.4, Absolute Eosinophils 0, Absolute Basophils 0, PUBS MCHC 33.2 05/05/17 0620: Anion Gap 11, Estimated GFR 60, BUN/Creatinine Ratio 18.9, CBC w Diff NO MAN DIFF REQ, RBC 3.97 L, MCV 89.3, MCH 29.8, RDW 13.8, MPV 10.1, Gran % 90.6 H, Lymphocytes % 8.5 L, Monocytes % 0.9 L, Eosinophils % 0, Basophils % 0, Absolute Granulocytes 5.1, Absolute Lymphocytes 0.5 L, Absolute Monocytes 0.1, Absolute Eosinophils 0, Absolute Basophils 0, PUBS MCHC 33.3 Microbiology 05/04 1948 URINE ROUT: Legionella Antigen - COMP 05/04 1948 URINE ROUT: Streptococcus pneumoniae Antigen (M - COMP Recent Imaging Studies: Telemetry tracings were personally reviewed and showed paced rhythm CXR: Cardiomegaly. Interval improvement/resolution of pulmonary edema compared to 05/04/2017. There is a trace residual right pleural effusion. Assessment/Plan Assessment/Plan 1. COPD 2. Heart failure with preserved ejection fraction 3. Atrial fibrillation not on anticoagulation due to previous hemorrhagic stroke 4. History of lung cancer with prior upper lobectomy 5. History of heart block with permanent pacemaker 6. History of hypertension Patient appears to be clinically improving; steroid regimen per pulmonary; she is now on oral Lasix and would aim to keep her fluid balance slightly negative. Blood pressure is within reasonable limits at this time. Gilbert Delarosa MD [facility] Continue telemetry? Yes
[2017-05-06 22:34] VITALS: BP 120/80
--- NOTE | 2017-05-07 07:28 | PN- Housestaff ---
See Addendum Subjective Follow-up For: COPD exacerbation CHF excerbation CAP Subjective: Patient was seen and examined this morning, vital signs stable, no overnight events. Patient reported improvement of shortness of breath, saturating 95% room air. Plans for discharge today. Review of Systems Constitutional: Reports: see HPI. Objective Last 24 Hrs of Vital Signs/I&O Vital Signs Date Time Temp Pulse Resp B/P B/P Pulse O2 O2 Flow FiO2 Mean Ox Delivery Rate 05/07 0039 95 Room Air 05/07 0000 Room Air 05/06 2234 98.1 59 20 120/80 95 05/06 1805 97 Room Air 05/06 1458 97.7 60 20 140/58 93 Room Air 05/06 1021 59 140/70 05/06 1021 59 140/70 05/06 0913 96 Room Air Room Air Intake & Output 05/07 0800 05/07 0000 05/06 1600 Intake Total 120 860 600 Output Total 450 650 Balance -330 860 -50 Intake, Oral 120 860 600 Number 1 Bowel Movements Output, Urine 450 650 Physical Exam General Appearance: Alert, Oriented X3, Cooperative, No Acute Distress Skin: No Rashes HEENT: Atraumatic, PERRLA, EOMI, Mucous Membr. moist/pink Neck: Supple Cardiovascular: Regular Rate, Normal S1, Normal S2, No Murmurs Lungs: Normal Air Movement, Expiratory fine wheeze Abdomen: Normal Bowel Sounds, Soft, No Tenderness Neurological: Normal Gait, Normal Speech, Strength at 5/5 X4 Ext, Normal Tone, Sensation Intact, Cranial Nerves 3-12 NL, Reflexes 2+ Extremities: No Clubbing, No Cyanosis, No Edema, Normal Pulses Assessment/Plan Assessment: Ms. 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 Chest x-ray IMPRESSION: Mild right basilar atelectasis with adjacent pleural thickening versus trace effusion. No additional consolidation. Mild central vascular prominence without overt edema. CTA IMPRESSION: 1. No pulmonary embolism. 2. Cardiomegaly and coronary artery atherosclerotic disease. Interlobular septal thickening is present within lower lobes and there is a new, small right pleural effusion. These findings likely reflect presence of mild cardiogenic edema. 3. In addition, there are some new patchy groundglass and nodular opacities in the lungs (including a new, irregular 0.9 cm nodule focus in the left lower lobe) which raise suspicion for superimposed pneumonia. 4. Moderate centrilobular emphysema. -PFTs were consistent with mild obstructive lung disease and a mild reduction in the DLCO. CTA evidence of Moderate centrilobular emphysema. Problem list #Shortness of breath multifactorial CHF, COPD and community-acquired pneumonia -We'll snatch Solu-Medrol to prednisone 40 this morning -Continue Lasix 40 in a.m. and 20 in p.m. by mouth -Monitor I/O target 1-2 L negative fluid balance---over the last 24 h it is positive by 500 ml -Augmentin 750 mg twice a day to finish total of 7 days antibiotic -Urine antigen for Legionella and Streptococcus pneumonia negative -Blood culture pending -Pulmonology consultation and cardiology consultation appreciated -Recent echocardiogram in the clinin yielded reserved function -Repeated chest x-ray revealed improvement in the right pleural effusion, interval improvement or resolution of pulmonary edema compared to last chest x- ray on admission 05/04/17 -Pulse ox on ambulation revealed 95% room air, nocturnal pulse oximetry didn't reveal any significant hypoxia -TRC and nebs #Paroxysmal atrial fibrillation not on anticoagulation, hypertension, hyperlipidemia, complete heart block status post pacemaker -Continue home medication except for metoprolol XL 25 daily, pet store merchandiser is okay with discontinuing metoprolol for now giving bronchospasm #History of hepatitis C status post 2014 following with rug setter [place] at [facility], last visit last month #History of breast cancer and non small cell lung cancer status post surgical excision Patient follow-up with Dr. alejandre last visit was early last year 2016. No history of recurrence, no nodular lesion on current CTA. DVT prophylaxis heparin subcutaneous, ALPS Diet heart healthy Code DNR/DNI Patient is anticipated for discharge in am. Problem List: 1. COPD (chronic obstructive pulmonary disease) 2. CAP (community acquired pneumonia) 3. SOB (shortness of breath) Pain Ratin Pain Location: n/a Pain Goal: Pain 4 or less Pain Plan: see medication Tomorrow's Labs & Rationales: n/a
[2017-05-07 07:42] VITALS: BP 154/70
[2017-05-07 08:08] LABS: ABSOLUTE BASOPHIL COUNT 0 /CUMM (0.0-0.2); ABSOLUTE EOSINOPHIL COUNT 0 /CUMM (0.0-0.7); ABSOLUTE GRANULOCYTE CT 10.7 /CUMM (1.4-6.5); ABSOLUTE LYMPH COUNT 0.5 /CUMM (1.2-3.4); ABSOLUTE MONOCYTE COUNT 0.4 /CUMM (0.10-0.60); BASOPHIL % 0 % (0.0-2.0); EOSINOPHIL % 0 % (0-5); GRANULOCYTE % 92.6 % (42.2-75.2); HEMATOCRIT 36.5 % (37-47); MEAN CORPUSCULAR HGB 29.6 PG (27.0-31.0); MEAN CORPUSCULAR HGB CONC 33.3 G/DL (33.0-37.0); MEAN PLATELET VOLUME 9.8 FL (7.4-10.4); RBC DISTRIBUTION WIDTH 13.7 % (11.5-14.5); RED BLOOD CELL CT 4.11 /CUMM (4.20-5.40)
[2017-05-07 10:21] LABS: WHITE BLOOD CELL COUNT 11.6 /CUMM (4.8-10.8)
[2017-05-07 10:22] LABS: PLATELET COUNT 307 /CUMM (130-400)
[2017-05-07] MEDS ORDERED: PROAIR HFA8.5 GM INH (10:32)
[2017-05-07] MEDS ORDERED: ATROVENT HFA12.9 GM NASB (10:32)
--- NOTE | 2017-05-07 13:01 | PN- Pulmonary ---
Subjective HPI/Critical Care Issues: Patient seen and examined this morning. She is on room air and feeling overall better she was reluctant to take her sleeping medication yesterday but once at night. We discussed with the patient that the goal is to discharge her to home tomorrow if there are no significant events. Objective Current Medications: Current Medications Sig/Elena Start time Last Medication Dose Route Stop Time Status Admin Acetaminophen 650 MG .STK-MED ONE 05/06 2148 DC PO 05/06 2149 Acetaminophen 650 MG Q6P PRN 05/04 1330 AC 05/06 PO 2148 Albuterol Sulfate 3 ML Q6 05/05 1200 AC 05/07 INH 0804 Amlodipine Besylate 5 MG DAILY 05/04 1454 AC 05/07 PO 1054 Amoxicillin/ 875 MG Q12 05/06 1306 AC 05/07 Clavulanate Potassium PO 05/10 2300 1055 Aspirin Buffered 81 MG DAILY 05/04 1454 AC 05/07 PO 1053 Azithromycin 500 MG Q24H 05/05 1800 DC 05/05 Sodium Chloride 250 ML IV 1711 Ceftriaxone Sodium 1,000 MG Q24H 05/05 1800 DC 05/05 IV 1711 Diltiazem HCl 180 MG DAILY 05/04 1454 AC 05/07 PO 1053 Furosemide 40 MG DAILY 05/07 1000 AC 05/07 PO 1053 Furosemide 20 MG 5PM 05/06 1700 AC 05/06 PO 1724 Furosemide 40 MG 7:30 AM, & 4:30 PM 05/04 1630 DC 05/06 IV 1020 Heparin Sodium 5,000 UNIT Q8 05/04 1400 AC 05/07 (Porcine) SC 0524 Latanoprost 1 GTT AT BEDTIME 05/04 2200 AC 05/06 OPH 2137 Levothyroxine Sodium 0.075 MG DAILY AC 05/04 1455 AC 05/07 PO 0523 Losartan Potassium 100 MG DAILY 05/04 1507 AC 05/07 PO 1054 Methylprednisolone 40 MG Q12 05/06 1000 DC 05/06 IV 2137 Polyethylene Glycol 17 GM DAILY 05/06 1000 AC 05/07 PO 1050 Prednisone 10 MG DAILY 05/13 1000 AC PO 05/15 0959 Prednisone 20 MG DAILY 05/11 1000 AC PO 05/13 0959 Prednisone 30 MG DAILY 05/09 1000 AC PO 05/11 0959 Prednisone 40 MG DAILY 05/07 1000 CAN PO 05/15 0959 Prednisone 40 MG DAILY 05/07 1000 AC 05/07 PO 05/09 0959 1053 Zolpidem Tartrate 5 MG AT BEDTIME 05/06 2200 AC PO Vital Signs & I&O Last 24 Hrs of Vitals and I&O: Vital Signs Date Time Temp Pulse Resp B/P B/P Pulse O2 O2 Flow FiO2 Mean Ox Delivery Rate 05/07 1054 59 154/70 05/07 1054 59 154/70 05/07 0834 95 Room Air 05/07 0742 98.4 59 20 154/70 95 05/07 0039 95 Room Air 05/07 0000 Room Air 05/06 2234 98.1 59 20 120/80 95 05/06 1805 97 Room Air 05/06 1458 97.7 60 20 140/58 93 Room Air Intake & Output 05/07 1600 05/07 0800 05/07 0000 Intake Total 120 860 Output Total 450 Balance -330 860 Intake, Oral 120 860 Output, Urine 450 Exam Other Physical Findings: gen awake and alert, speaks in full sentences, ambulated to restroom comfortably heent ncat cvs s1, s2 lungs no wheezing today (resolved) abd soft bs+ ext without any edema Results Last 24 Hrs of Lab Results: Laboratory Tests 05/07/17621: CBC w Diff NO MAN DIFF REQ, RBC 4.11 L, MCV 89.0, MCH 29.6, RDW 13.7, MPV 9.8, Gran % 92.6 H, Lymphocytes % 4.1 L, Monocytes % 3.3, Eosinophils % 0, Basophils % 0, Absolute Granulocytes 10.7 H, Absolute Lymphocytes 0.5 L, Absolute Monocytes 0.4, Absolute Eosinophils 0, Absolute Basophils 0, PUBS MCHC 33.3 Impression/Plan Impression/Plan Impression/Plan: Impression 81 year old woman. * multifactorial subjective dyspnea can be from CHF and COPD, however mild and maybe new respiratory baseline, she is feeling better today Plan -cardiology appreciated -ins/outs, diuresis -prednisone taper as ordered -ambien 5mg once -trc/nebs -zithromax course -possible deconditioning, consideration for rehab -possibly new respiratory baseline DVT prophylaxis at all times discussed with daughter as well plan for dc within 24 hrs if no events
[2017-05-07 15:26] VITALS: BP 140/70
[2017-05-07 22:16] VITALS: BP 142/60
[2017-05-08 07:06] VITALS: BP 164/74
[2017-05-08 07:47] LABS: ABSOLUTE BASOPHIL COUNT 0 /CUMM (0.0-0.2); ABSOLUTE EOSINOPHIL COUNT 0 /CUMM (0.0-0.7); ABSOLUTE GRANULOCYTE CT 8.4 /CUMM (1.4-6.5); ABSOLUTE LYMPH COUNT 0.7 /CUMM (1.2-3.4); ABSOLUTE MONOCYTE COUNT 0.9 /CUMM (0.10-0.60); BASOPHIL % 0 % (0.0-2.0); EOSINOPHIL % 0.1 % (0-5); GRANULOCYTE % 83.5 % (42.2-75.2); MEAN CORPUSCULAR HGB 29.5 PG (27.0-31.0); MEAN CORPUSCULAR HGB CONC 32.8 G/DL (33.0-37.0); MEAN CORPUSCULAR VOLUME 90.1 FL (81.0-99.0); MEAN PLATELET VOLUME 9.3 FL (7.4-10.4); PLATELET COUNT 300 /CUMM (130-400); RED BLOOD CELL CT 4.22 /CUMM (4.20-5.40)
--- NOTE | 2017-05-08 11:07 | PN- Att Addend ---
Attending Addendum Attending Brief Note Patient seen and examined. Resting comfortably and not in any acute distress. She reports ambulating freely around the unit yesterday with no respiratory complaints. He she reported that the Ambien didn't help her sleep well last plan however she did get agitated when she was awoken in the middle of the night during a nebulizer therapy. Vital Signs Date Time Temp Pulse Resp B/P B/P Pulse O2 O2 Flow FiO2 Mean Ox Delivery Rate 05/08 826 59 164/74 05/08 0727 59 164/74 05/08 0706 97.3 59 18 164/74 97 Room Air 05/08 0215 Room Air 05/08 0146 95 Room Air 05/07 2216 98.0 61 18 142/60 97 05/07 1911 95 Room Air 05/07 1526 97.8 60 20 140/70 97 Room Air Intake & Output 05/08 1600 05/08 0800 05/08 0000 Intake Total 200 240 Output Total 600 Balance 200 -360 Intake, Oral 200 240 Output, Urine 600 On examination she is not in any respiratory distress. Heart sounds are regular. She has been entry bilaterally with no added sounds. Abdomen is soft and nontender. She has no peripheral edema. Laboratory Tests 05/08/17 0650: Anion Gap 10, Estimated GFR 53 L, BUN/Creatinine Ratio 34.0 H, Magnesium 2.4 H, CBC w Diff NO MAN DIFF REQ, RBC 4.22, MCV 90.1, MCH 29.5, RDW 14.0, MPV 9.3, Gran % 83.5 H, Lymphocytes % 7.3 L, Monocytes % 9.1, Eosinophils % 0.1, Basophils % 0, Absolute Granulocytes 8.4 H, Absolute Lymphocytes 0.7 L, Absolute Monocytes 0.9 H, Absolute Eosinophils 0, Absolute Basophils 0, PUBS MCHC 32.8 L Problems: 1. COPD exacerbation 2. Cardiogenic edema on imaging. 3. Community-acquired pneumonia 4. Atrial fibrillation Recommendations: -Patient's respiratory status has improved compared to presentation. She is not requiring oxygen supplementation. She is ambulating freely around the unit and not requiring assistance with liter respiratory complaints. -Patient is very hesitant about being discharged home today. Diagnoses and plan of care was explained to the patient and family. She was also evaluated by her chief nurse anesthetist today. -On discharge patient will receive prednisone taper and a course of oral antibiotics. She will also be discharged with bronchodilators via nebulizer. -She is to continue on her home diuretic regimen upon discharge. -No need to repeat labs unless there is a change in her clinical status.
--- NOTE | 2017-05-08 11:34 | PN- Pulmonary ---
See Addendum Subjective HPI/Critical Care Issues: Patient seen and examined this morning. She is on room air and appearing to be doing better. Disposition discharged within the next 24 hours families at bedside and her case was discussed with them. Objective Current Medications: Current Medications Sig/Elena Start time Last Medication Dose Route Stop Time Status Admin Acetaminophen 650 MG Q6P PRN 05/04 1330 AC 05/06 PO 2148 Albuterol Sulfate 3 ML Q6 05/05 1200 AC 05/08 INH 0742 Amlodipine Besylate 5 MG DAILY 05/04 1454 AC 05/08 PO 0827 Amoxicillin/ 875 MG Q12 05/06 1306 AC 05/08 Clavulanate Potassium PO 05/10 2300 0826 Aspirin Buffered 81 MG DAILY 05/04 1454 AC 05/08 PO 0826 Diltiazem HCl 180 MG DAILY 05/04 1454 AC 05/08 PO 0827 Furosemide 40 MG DAILY 05/07 1000 AC 05/08 PO 0827 Furosemide 20 MG 5PM 05/06 1700 AC 05/07 PO 1739 Heparin Sodium 5,000 UNIT Q8 05/04 1400 AC 05/08 (Porcine) SC 0703 Latanoprost 1 GTT AT BEDTIME 05/04 2200 AC 05/07 OPH 2133 Levothyroxine Sodium 0.075 MG DAILY AC 05/04 1455 AC 05/08 PO 0704 Losartan Potassium 100 MG DAILY 05/04 1507 AC 05/08 PO 0827 Polyethylene Glycol 17 GM DAILY 05/06 1000 AC 05/08 PO 0825 Prednisone 10 MG DAILY 05/13 1000 AC PO 05/15 0959 Prednisone 20 MG DAILY 05/11 1000 AC PO 05/13 0959 Prednisone 30 MG DAILY 05/09 1000 AC PO 05/11 0959 Prednisone 40 MG DAILY 05/07 1000 AC 05/08 PO 05/09 0959 0825 Zolpidem Tartrate 5 MG AT BEDTIME 05/06 2200 AC 05/07 PO 2133 Vital Signs & I&O Last 24 Hrs of Vitals and I&O: Vital Signs Date Time Temp Pulse Resp B/P B/P Pulse O2 O2 Flow FiO2 Mean Ox Delivery Rate 05/08 826 59 164/74 05/08 826 59 164/74 05/08 0706 97.3 59 18 164/74 97 Room Air 05/08 0215 Room Air 05/08 0146 95 Room Air 05/07 2216 98.0 61 18 142/60 97 05/07 1911 95 Room Air 05/07 1526 97.8 60 20 140/70 97 Room Air Intake & Output 05/08 1600 05/08 0800 05/08 0000 Intake Total 200 240 Output Total 600 Balance 200 -360 Intake, Oral 200 240 Output, Urine 600 Exam Other Physical Findings: gen awake and alert, speaks in full sentences, ambulated to restroom comfortably heent ncat cvs s1, s2 lungs no wheezing today (resolved) abd soft bs+ ext without any edema Results Last 24 Hrs of Lab Results: Laboratory Tests 05/08/17 0650: Anion Gap 10, Estimated GFR 53 L, BUN/Creatinine Ratio 34.0 H, Magnesium 2.4 H, CBC w Diff NO MAN DIFF REQ, RBC 4.22, MCV 90.1, MCH 29.5, RDW 14.0, MPV 9.3, Gran % 83.5 H, Lymphocytes % 7.3 L, Monocytes % 9.1, Eosinophils % 0.1, Basophils % 0, Absolute Granulocytes 8.4 H, Absolute Lymphocytes 0.7 L, Absolute Monocytes 0.9 H, Absolute Eosinophils 0, Absolute Basophils 0, PUBS MCHC 32.8 L Impression/Plan Impression/Plan Impression/Plan: Impression 81 year old woman. * multifactorial subjective dyspnea can be from CHF and COPD, however mild and maybe new respiratory baseline, she is feeling better today Plan -cardiology appreciated -ins/outs, diuresis -prednisone taper as ordered -no further sleeping medications -trc/nebs -zithromax course -possible deconditioning DVT prophylaxis at all times discussed with daughter and family plan for dc within 24 hrs if no events - this was d/w pt and family
[2017-05-08 14:00] VITALS: BP 158/68
[2017-05-08 22:37] VITALS: BP 150/60
[2017-05-09 06:15] VITALS: BP 176/80
--- NOTE | 2017-05-09 06:38 | Event Note ---
Event Note Event Note: Patient had a rapid response due to a witnessed fall. Per nursing staff she was entering the room to give patient her bp medication early (had just reported BP in the 170s) when she saw the patient walk out from the bathroom, stumble and fall. Patient denies LOC, states she hit the side of her face and felt she hit her nose. She also scraped her hands and is complaining of right hand pain at the site of the laceration. Patient states she is otherwise fine. Denies any lightheadedness or dizziness prior to falling. Vitals: BP: 172/82, HR: 60, Saturating at 96% on RA. Pertinent positives on exam show a large laceration on dorsum of right hand and smaller skin tear on left hand. Remainder of PE within normal limits. Blood sugar: 69. Patient had a mechanical fall. Patient is currently stable. Monitor closely with frequent neurochecks. Consider CT Head if her condition worsens.
[2017-05-09 06:39] VITALS: BP 176/82
[2017-05-09 08:33] VITALS: BP 176/82
[2017-05-09] MEDS ORDERED: PREDNISONE10 M2 PO ×2 (09:45→12:01)
[2017-05-09] MEDS ORDERED: AUGMENTIN 875-1 EACH PO ×2 (09:45→11:55)
[2017-05-09] MEDS ORDERED: ALBUTEROL0.63 MG/1 INH/SOL ×2 (09:45→11:55)
--- NOTE | 2017-05-09 09:57 | PN- Att Addend ---
Attending Addendum Attending Brief Note Patient seen and examined. Resting comfortably not in any acute distress. Apparently earlier this morning while coming out of the bathroom she tripped and fell to the ground. She denies any preceding dizziness or lightheadedness. Denies any chest pain or palpitations. There was no loss of consciousness associated with the episode. She fell on her hand sustaining a skin tear to her right hand. Vital Signs Date Time Temp Pulse Resp B/P B/P Pulse O2 O2 Flow FiO2 Mean Ox Delivery Rate 05/09 832 60 176/82 05/09 0639 60 20 176/82 05/09 0621 60 176/80 05/09 0615 97.7 60 20 176/80 96 Room Air 05/09 0613 97 Room Air 05/08 2237 97.6 60 20 150/60 96 Room Air 05/08 1926 97 Room Air 05/08 1400 97.7 77 20 158/68 95 General appearance: Not in acute distress Neurologic: Pupils equal and reactive, power 4/5 right upper extremity is chronic, 4/5 all extremities. Sensory intact. Lungs: Good entry bilaterally, clear to auscultation Heart: S1-S2 regular abdomen: Soft and nontender with normal bowel sounds Extremities: No pedal edema Problems: 1. COPD exacerbation 2. Cardiogenic edema on imaging. 3. Community-acquired pneumonia 4. Atrial fibrillation 5. Mechanical fall Plan: -Follow appears to be mechanical. Patient reports tripping when compared to the bathroom. She has no histories of recurrent falls. Nursing staff reports ambulating her this morning with no gait abnormalities. No significant trauma sustained other than skin tear to the right hand. -Bronchospasm appears to have resolved. Will taper off steroid therapy and completed antibiotic course for complete acquired pneumonia. -Patient will be provided with albuterol via nebulizer upon discharge. She will also be provided a prescription for nebulizer machine. She has been advised to follow-up with her military administrative technician as an outpatient. -She is to continue on her home dose of diuretic therapy upon discharge.
--- NOTE | 2017-05-09 10:50 | PN- Pulmonary ---
Subjective HPI/Critical Care Issues: Patient seen and examined this morning. Early this morning she had a fall. She had a bruise to her right forearm and head. She is feeling comfortable at this time. She was evaluated by her internal medicine team. Objective Current Medications: Current Medications Sig/Elena Start time Last Medication Dose Route Stop Time Status Admin Acetaminophen 650 MG .STK-MED ONE 05/08 2046 DC PO 05/08 204 Acetaminophen 650 MG Q6P PRN 05/04 1330 AC 05/08 PO 2208 Albuterol Sulfate 3 ML BID 05/08 2200 AC 05/08 INH 1923 Albuterol Sulfate 3 ML Q6 05/05 1200 DC 05/08 INH 0742 Amlodipine Besylate 5 MG DAILY 05/04 1454 AC 05/09 PO 0621 Amoxicillin/ 875 MG Q12 05/06 1306 AC 05/09 Clavulanate Potassium PO 05/10 2300 0832 Aspirin Buffered 81 MG DAILY 05/04 1454 AC 05/09 PO 0830 Diltiazem HCl 180 MG DAILY 05/04 1454 AC 05/09 PO 0830 Furosemide 40 MG DAILY 05/07 1000 AC 05/09 PO 0833 Furosemide 20 MG 5PM 05/06 1700 AC 05/08 PO 1703 Heparin Sodium 5,000 UNIT Q8 05/04 1400 AC 05/09 (Porcine) SC 0600 Latanoprost 1 GTT AT BEDTIME 05/04 2200 AC 05/08 OPH 2209 Levothyroxine Sodium 0.075 MG DAILY AC 05/04 1455 AC 05/09 PO 0600 Losartan Potassium 100 MG DAILY 05/04 1507 AC 05/09 PO 0833 Polyethylene Glycol 17 GM DAILY 05/06 1000 AC 05/08 PO 0825 Prednisone 10 MG DAILY 05/13 1000 AC PO 05/15 0959 Prednisone 20 MG DAILY 05/11 1000 AC PO 05/13 0959 Prednisone 30 MG DAILY 05/09 1000 AC 05/09 PO 05/11 0959 0829 Prednisone 40 MG DAILY 05/07 1000 DC 05/08 PO 05/09 0959 0825 Zolpidem Tartrate 5 MG AT BEDTIME 05/06 2200 DC 05/08 PO 2307 Vital Signs & I&O Last 24 Hrs of Vitals and I&O: Vital Signs Date Time Temp Pulse Resp B/P B/P Pulse O2 O2 Flow FiO2 Mean Ox Delivery Rate 05/09 832 60 176/82 05/09 0639 60 20 176/82 05/09 0621 60 176/80 05/09 0615 97.7 60 20 176/80 96 Room Air 05/09 0613 97 Room Air 05/08 2237 97.6 60 20 150/60 96 Room Air 05/08 1926 97 Room Air 05/08 1400 97.7 77 20 158/68 95 Intake & Output 05/09 1600 05/09 0800 05/09 0000 Intake Total 240 480 Output Total 1400 750 Balance -1160 -270 Intake, Oral 240 480 Number 1 1 Bowel Movements Output, Urine 1400 750 Exam Other Physical Findings: Patient is awake and alert. Her heart exam is stable. She has no wheezing and some bibasilar mild rhonchi at the bases. Impression/Plan Impression/Plan Impression/Plan: Impression 81 year old woman. * multifactorial subjective dyspnea can be from CHF and COPD, however mild and maybe new respiratory baseline, she is feeling better today Plan -s/p accidental fall - to be worked up by IM -cardiology appreciated -ins/outs, diuresis -prednisone taper as ordered -no further sleeping medications -trc/nebs -zithromax course -possible deconditioning DVT prophylaxis at all times discussed with daughter and family DC planning
--- NOTE | 2017-05-09 11:01 | PN- Housestaff ---
Subjective Follow-up For: COPD exacerbation CHF excerbation CAP Subjective: Patient was seen and examined this morning, vital signs are stable. Reported about fall this morning, she slipped while she is walking out of the bathroom, denied hitting his head. Had a small laceration on the right wrist. Patient reported improvement of shortness of breath, cough resolved, no fever or chills, wants to be discharged today. Review of Systems Constitutional: Reports: see HPI. Objective Last 24 Hrs of Vital Signs/I&O Vital Signs Date Time Temp Pulse Resp B/P B/P Pulse O2 O2 Flow FiO2 Mean Ox Delivery Rate 05/09 1223 97 Room Air Room Air 05/09 0833 60 176/82 05/09 0639 60 20 176/82 05/09 0621 60 176/80 05/09 0615 97.7 60 20 176/80 96 Room Air 05/09 0613 97 Room Air 05/08 2237 97.6 60 20 150/60 96 Room Air 05/08 1926 97 Room Air Intake & Output 05/09 1600 05/09 0800 05/09 0000 Intake Total 240 480 Output Total 1400 750 Balance -1160 -270 Intake, Oral 240 480 Number 1 1 Bowel Movements Output, Urine 1400 750 Physical Exam General Appearance: Alert, Oriented X3, Cooperative, No Acute Distress Skin: No Rashes, Small laceration over the right wrist Skin Temp/Moisture Exam: Warm/Dry HEENT: Atraumatic, PERRLA, EOMI, Mucous Membr. moist/pink Neck: Supple Cardiovascular: Regular Rate, Normal S1, Normal S2, No Murmurs Lungs: Clear to Auscultation, Normal Air Movement Abdomen: Normal Bowel Sounds, Soft, No Tenderness Neurological: Normal Gait, Normal Speech, Strength at 5/5 X4 Ext, Normal Tone, Sensation Intact, Cranial Nerves 3-12 NL, Reflexes 2+ Extremities: No Clubbing, No Cyanosis, No Edema, Normal Pulses Assessment/Plan Assessment: Ms. 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 Chest x-ray IMPRESSION: Mild right basilar atelectasis with adjacent pleural thickening versus trace effusion. No additional consolidation. Mild central vascular prominence without overt edema. CTA IMPRESSION: 1. No pulmonary embolism. 2. Cardiomegaly and coronary artery atherosclerotic disease. Interlobular septal thickening is present within lower lobes and there is a new, small right pleural effusion. These findings likely reflect presence of mild cardiogenic edema. 3. In addition, there are some new patchy groundglass and nodular opacities in the lungs (including a new, irregular 0.9 cm nodule focus in the left lower lobe) which raise suspicion for superimposed pneumonia. 4. Moderate centrilobular emphysema. -PFTs were consistent with mild obstructive lung disease and a mild reduction in the DLCO. CTA evidence of Moderate centrilobular emphysema. Problem list #Shortness of breath multifactorial CHF, COPD and community-acquired pneumonia -continue prednisone 30 daily and taper the dose -Continue Lasix 40 in a.m. and 20 in p.m. by mouth -Monitor I/O target 1-2 L negative fluid balance---over the last 24 h it is positive by 500 ml -Augmentin 750 mg twice a day to finish total of 7 days antibiotic -Urine antigen for Legionella and Streptococcus pneumonia negative -Blood culture negative. final results pending. -Pulmonology consultation and cardiology consultation appreciated -Recent echocardiogram in the clinin yielded reserved function -Repeated chest x-ray revealed improvement in the right pleural effusion, interval improvement or resolution of pulmonary edema compared to last chest x- ray on admission 05/04/17 -Pulse ox on ambulation revealed 95% room air, nocturnal pulse oximetry didn't reveal any significant hypoxia -TRC and nebs #Paroxysmal atrial fibrillation not on anticoagulation, hypertension, hyperlipidemia, complete heart block status post pacemaker -Continue home medication except for metoprolol XL 25 daily, [employer] is okay with discontinuing metoprolol for now giving bronchospasm. continue on discharge hence improvement of SOB. #History of hepatitis C status post 2014 following with rn oncology clinical at [place], last visit last month #History of breast cancer and non small cell lung cancer status post surgical excision Patient follow-up with Dr. alejandre last visit was early last year 2016. No history of recurrence, no nodular lesion on current CTA. DVT prophylaxis heparin subcutaneous, ALPS Diet heart healthy Code DNR/DNI Patient is for discharge today Problem List: 1. COPD (chronic obstructive pulmonary disease) Pain Ratin Pain Location: N/A Pain Goal: Pain 4 or less Pain Plan: See medication Tomorrow's Labs & Rationales: N/A
[2017-05-09] MEDS ORDERED: ATROVENT HFA12.9 GM NASB (11:55)
[2017-05-09] MEDS ORDERED: PROAIR HFA8.5 GM INH (11:55)
== END 2017-05-09 13:20 | DRG 190 ==
LOC: ERH 07:56 → ERHI 11:46 → 1NO 11:46 → ENRESERV 12:35 → ENTRNSPT 14:00 → EDTRNSPT 14:18 → EDTRNSPTSTS 14:18 → 1NO 14:32 → CMPTRNSPT 14:46 → 1NO 05-05 08:17 → ENPENDDIS 05-09 11:04 → ENTRNSPT 05-09 13:14 → EDTRNSPTSTS 05-09 13:16 → 1NO 05-09 13:20 → CMPTRNSPT 05-09 13:41
PROVIDERS: Emergency Medicine; Internal Medicine Adolescent Medicine; Student in an Organized Health Care Education/Training Program
DX: J44.1 Chronic obstructive pulmonary disease with (acute) exacerbation (principal); I50.33 Acute on chronic diastolic (congestive) heart failure; J18.9 Pneumonia, unspecified organism; I11.0 Hypertensive heart disease with heart failure; I69.351 Hemiplegia and hemiparesis following cerebral infarction affecting right dominant side; I48.0 Paroxysmal atrial fibrillation; D64.9 Anemia, unspecified; Z95.0 Presence of cardiac pacemaker; E03.9 Hypothyroidism, unspecified; H40.9 Unspecified glaucoma; F41.9 Anxiety disorder, unspecified; M19.90 Unspecified osteoarthritis, unspecified site; Z85.3 Personal history of malignant neoplasm of breast; Z85.118 Personal history of other malignant neoplasm of bronchus and lung; Z79.82 Long term (current) use of aspirin; I35.0 Nonrheumatic aortic (valve) stenosis
CPT/HCPCS: 1NP; 36415; 71045; 71046; 81001; 82436; 87040; 87449; 87450; 93005; 93010; 94799; 96374; 99291; J0456; J0696; J1644; J1940; J2920; J7040; J7512